=== PATIENT | male | born 1940 | race Caucasian/White ===

== ENCOUNTER 2016-11-10 15:32 | Inpatient (IN) | payer OTHER ==
[~2016-11-10] VITALS: Ht 172.7 cm; Wt 105.3 kg
--- NOTE | ~2016-11-10 | H ---
[facility] [place] [address] HISTORY AND PHYSICAL Name: KANG SHUKLA Room #: 248-P [facility] IN ..#: [id number] Admission: 11/10/16 Attend Phys: Royal Castro Discharge: Date of : 42 Report #: [id number] THIS REPORT FOR: //name// CC: Ed Deal DATE OF SERVICE: 11/10/2016 CHIEF COMPLAINT: Shortness of breath. HISTORY OF PRESENT ILLNESS: The patient is a 76-year-old gentleman who presented to the Emergency Room with 4 days of shortness of breath. He said over the last week, he has gained 6 or 7 pounds at home and has developed a productive cough. He reported some symptoms of "congestion" and cough spasms, but really nonproductive cough. He felt his breathing was worse when he tried to lie in bed, so he has been upright in a chair. He does have a history of sleep apnea and wears a CPAP at night, which he has been using. He thought maybe he had some lower extremity edema as well. He denied any symptoms of fever. PAST MEDICAL HISTORY: Hypertension, obstructive sleep apnea, diabetes type 2. PAST SURGICAL HISTORY: Noncontributory. FAMILY HISTORY: Unknown. SOCIAL HISTORY: He is living at home. No chronic alcohol or tobacco use. ALLERGIES: None. MEDICATIONS: Metformin 850 mg b.i.d., VESIcare 5 mg, nabumetone 500 mg, Amaryl 2 mg, niacin 500 mg, Avapro 150 mg, pravastatin 20 mg, Flomax 0.4 mg, testosterone every other week injection. REVIEW OF SYSTEMS: He complains of shortness of breath, diaphoresis, otherwise no headache, chest pain, fever or chills, nausea, vomiting, diarrhea, constipation, dysuria, syncope. PHYSICAL EXAMINATION: VITAL SIGNS: Temperature 36.6, pulse 100, respirations 25, blood pressure 135/100, ranging 135/92. O2 sat 94% to 96% on 2 liters nasal cannula. GENERAL: He is awake and alert, in no distress. He is diaphoretic. LUNGS: Diminished at the bases, some wheezing north. HEART: Tachycardic, regular, no murmur. ABDOMEN: Obese, soft, normoactive bowel sounds. EXTREMITIES: 1+ edema. NEUROLOGIC: Motor strength 4/5 throughout. He is alert and oriented. [facility] [address] [place] [address] HISTORY AND PHYSICAL Name: KANG SHUKLA Rosendo Room #: 248-P [facility] IN [facility]#: [id number] Admission: 11/10/16 Attend Phys: Royal Castro Discharge: Date of : 42 Report #: [id number] LABORATORY DATA: White count is 10. Chest x-ray reveals atelectasis in the bases. His BNP was 11,000. ASSESSMENT: 1. Acute congestive heart failure. 2. Obstructive sleep apnea. 3. Diabetes type 2. 4. Morbid obesity. PLAN: His presentation and findings are more supportive of congestive heart failure diagnosis rather than infectious pneumonia process given no real sputum production, fever, and only marginal white count which has normalized overnight. Elevated BNP with his reports of weight gain would support more of a heart failure picture. IV fluids to stop with Lasix to be given. I have spoken with Dr. Piña echocardiogram has been ordered. Lovenox for DVT prophylaxis. I some of his home medications for now to give more data. <ELECTRONICALLY SIGNED> By: Antonio Heaton MD 11/11/16 1359 1033 1230 Antonio Heaton MD /nt
--- NOTE | ~2016-11-10 | EKG ---
[place] [address] [facility] [place] [address] ELECTROCARDIOGRAM REPORT Name: ANTHONY SHUKLAHIWOT Robbins Room #: 242-P ADM IN M.R.#: [id number] Admission: 11/10/16 Attend Phys: Royal Castro Discharge: Date of : 42 Report #: [id number] THIS REPORT FOR: //name// [facility] Test Date: 2016-11-12 Test Time: 16:58:53 Pat Name: KANG SHUKLA Department: Room: 242 P Gender: M International Logistics Manager: Royal LUNDBERG : 1940 Requested By: Antonio Heaton Order Number: [id number] MD: Perez France Measurements Intervals [place] Rate: 112 P: [place]: QRS: 237 QRSD: 108 T: 3 QT: 412 QTc: 563 Interpretive Statements Atrial fibrillation Paired ventricular premature complexes Poor R wave progression Nonspecific T wave abnormality Prolonged QT interval Compared to ECG 11/10/2016 16:26:50 atrial fibrillation is replaced sinus rhythm Electronically Signed On 11-13-2016 8:24:49 CDT by Perez France [email or web address] <ELECTRONICALLY SIGNED> By: Perez France MD, [facility] 11/13/16 0824 1658 1658 Perez France MD, [facility] /EPI
--- NOTE | ~2016-11-10 | D ---
[facility] [place] [address] DISCHARGE SUMMARY Name: KANG SHUKLA Room #: 207-P [facility] IN .R.#: [id number] Admission: 11/10/16 Attend Phys: oRyal Castro Discharge: 11/19/16 Date of : 41 Report #: [id number] THIS REPORT FOR: //name// CC: Ed Deal DATE OF SERVICE: 11/19/2016 FINAL DIAGNOSES: 1. Acute systolic congestive heart failure. 2. Acute hypoxic respiratory failure. 3. Obstructive sleep apnea, on CPAP. 4. Coronary artery disease. 5. Metabolic encephalopathy. 6. Critical illness myopathy. HOSPITAL COURSE: The patient was admitted with shortness of breath. Working diagnosis through the emergency room was pneumonia; however, he had no elevated white count or sputum and exam along with studies confirmed the diagnosis of pneumonia given pulmonary edema, effusions, elevated BNP and ultimately on echocardiogram, ejection fraction of 20%. He developed hypoxic respiratory failure and required BiPAP treatment in ICU initially. Pulmonary and cardiology followed him. Diuretics were administered and gradually his condition was slowly improving. He transferred out of ICU and underwent a left and right heart cath, please see the separately dictated reports. This revealed some scattered coronary artery disease, but nothing amenable to stent, ejection fraction was confirmed at 20% with a high wedge pressure and slightly elevated pulmonary artery pressure. Diuretic doses were adjusted. Gradually, his mental status cleared, returned to baseline. He was back on his home CPAP equipment. He was a tolerating a diet and was transferred out to CCU. He was participating with physical therapy. DISPOSITION: He is being transferred to [address] [place] [address]. All the services will continue to follow his stay there, and a heart healthy diet and medications have been signed for transfer. <ELECTRONICALLY SIGNED> By: Antonio Heaton MD 11/21/16 0821 1142 1203 Antonio Heaton MD /nt
--- NOTE | ~2016-11-10 | HC ---
[facility] [place] [address] CONSULTATION Name: KANG SHUKLA Rosendo Room #: 242-P [facility] IN ..#: [id number] Admission: 11/10/16 Attend Phys: Royal Castro Discharge: Date of : 41 Report #: [id number] THIS REPORT FOR: //name// CC: Ed Piña MD HISTORY OF PRESENT ILLNESS: The patient is a 76-year-old male who I was asked to see in neurological consultation for altered mental status. The patient was initially admitted to the hospital 2 days ago with shortness of breath. At that time, the patient was found to have a CO2 on his blood gas was 52. The patient has sleep apnea and is apparently compliant with CPAP. During his hospital admission, he was also found to have heart failure and has an ejection fraction of 20%. Apparently, the patient has not felt well for the past 6 months or so and has become progressively short of breath. Earlier today, the patient's breathing became quite labored and he began using his abdominal muscles. The patient was put on BiPAP and his breathing became more comfortable. However, the patient became lethargic and had to depend continuously on BiPAP and he was transferred to the intensive care unit. At that time, the results of the echo were noted. He was able to open his eyes, but not able to do much else, it was at bedtime. His CO2 on his blood gas was 70. The patient has now had a repeat blood gas and his CO2 is 65.9. PAST MEDICAL HISTORY: Hypertension, obstructive sleep apnea, and diabetes. PAST SURGICAL HISTORY: Noncontributory. MEDICATIONS: In the hospital include Coreg 6.25 mg b.i.d., Rocephin 1 g daily, Colace 100 mg at bedtime, Lovenox 40 mg subcutaneous daily, Flomax 0.4 mg daily, furosemide 40 mg IV b.i.d., losartan 100 mg daily. ALLERGIES: None. PHYSICAL EXAMINATION: VITAL SIGNS: Temperature 36.8 axillary, pulse rate 89, respiratory rate 17, blood pressure 100/70, bedside pulse oximetry 98% on BiPAP. LABORATORY DATA: White blood cell count 12.9, hemoglobin 14.3, hematocrit 44.6, MCV 87.9, platelet count 378,000. Most recent blood gas pH 7.355, pCO2 of 65.9, pCO2 36, O2 saturation 96.2. Chemistry: Sodium 136, potassium 5.1, chloride 99, carbon dioxide 32, BUN 32, creatinine 1.1, GFR 65, glucose 103, calcium 9.8, total bilirubin 1, AST 19, ALT 19, alkaline phosphatase 95, albumin 3.3. TSH is 3.21. IMAGING: CT scan of the head demonstrates atrophic changes. NEUROLOGIC: Cranial nerves 2-12 are grossly intact. Motor exam demonstrates [address] [address] CONSULTATION Name: KANG SHUKLA Rosendo Room #: 242-P [facility] IN ..#: [id number] Admission: 11/10/16 Attend Phys: Royal Castro Discharge: Date of : 41 Report #: [id number] symmetrical strength in all 4 extremities with tone and bulk normal. Reflexes are trace throughout. Plantar responses are flexor bilaterally. Coordination and gait were not tested. The patient was able to follow simple commands. IMPRESSION: Although the patient may not be completely awake. He was able to follow simple commands. According to the nurse, the patient's mentation has improved as his CO2 was improved, and I would suspect that he is lethargic from the increase in CO2. As this includes his mentation should improve, although it may lag behind his lab work. If the patient does not return to his baseline, please let me know and I will be more than happy to reevaluate him. I thank you for your kind referral of the patient. <ELECTRONICALLY SIGNED> By: Yola Herrera DO 11/15/16 1457 1517 0114 Yola Herrera DO /nt
--- NOTE | ~2016-11-10 | HC ---
[facility] [place] [address] CONSULTATION Name: KANG SHUKLA Room #: 242-P [facility] IN M.R.#: [id number] Admission: 11/10/16 Attend Phys: Royal Castro Discharge: Date of : 41 Report #: [id number] THIS REPORT FOR: //name// CC: Ed Deal PULMONARY CONSULTATION PRIMARY PHYSICIAN: Mateusz Deal M.D. REASON FOR REFERRAL: Dyspnea. HISTORY OF PRESENT ILLNESS: The patient is a 76-year-old white male who presents to the emergency room with progressive dyspnea. A pulmonary consultation was requested. The patient states that he has been short of breath for the last 6 months and it has been progressively worsening. For the last few days, he has noticed generalized weakness. He denies any paresthesias or unilateral numbness or weaknesses. He denies any recent headache. He has smoked for a few years, but quit in 1960s. He has never been diagnosed with chronic lung disease. He has sleep apnea and he has been said to be compliant with the use of CPAP. He also states that he lost 20-30 pounds intentionally over the last few months. With worsening dyspnea, he presents to the emergency room. CT chest and chest x-ray performed were in the emergency room. These showed mild ground-glass opacity in both lung north. Small lung volumes were noted. No evidence of pulmonary embolus. Again, the patient denies any recent febrile illness, chest pain or productive cough. He is also followed by Dr. Siu. PAST MEDICAL HISTORY: Notable for sleep apnea as mentioned above; morbid obesity, now with intentional weight loss; diabetes mellitus type 2; hypertension; seasonal allergies and history of infiltrates dating back to 2001. ALLERGIES: None noted. MEDICATIONS: His home medications include Glucophage, VESIcare, nabumetone, Amaryl, niacin, Avapro, Pravachol, Flomax and Testosterone. FAMILY HISTORY: Noncontributory. SOCIAL HISTORY: As mentioned above, he quit smoking in 1960s. Denies any [facility] [address] [place] [place] [address] CONSULTATION Name: KANG SHUKLA Room #: [address] [place] [place] [address] IN ..#: [id number] Admission: 11/10/16 Attend Phys: Royal Castro Discharge: Date of : 41 Report #: [id number] alcohol use. He is retired from office work. REVIEW OF SYSTEMS: As mentioned above, otherwise 10-point system review negative. PHYSICAL EXAMINATION: GENERAL: On examination, he is awake, alert, appears moderately dyspneic and appears weak. VITAL SIGNS: Temperature is 98 degrees Fahrenheit, pulse is 100, respiratory rate is 25, blood pressure is 135/92 mmHg and saturation 96% on supplemental O2. HEENT: Normocephalic, atraumatic. NECK: Supple, without any lymphadenopathy or thyromegaly. CHEST: Breath sounds are decreased bilaterally, with few scattered crackles in the bases. No wheezes. CARDIOVASCULAR: Heart sounds are distant. No obvious murmurs or gallop. Regular rhythm and rate. ABDOMEN: Obese, soft, nontender. No organomegaly or masses felt. GENITOURINARY: Deferred. RECTAL: Deferred. EXTREMITIES: Notable for 1+ pretibial edema. No cyanosis or clubbing. LABORATORY DATA: Chest x-ray and CT chest, as mentioned above, showing mild bilateral ground-glass opacities. D-dimer was 1.332. CT head showed atrophic changes. Troponin was 0.06. EKG shows old anteroseptal infarct, otherwise no acute changes. Sodium 134, potassium 4.7, chloride 97, CO2 is 31, BUN is 25 and creatinine is 1.0. Liver function test is grossly unremarkable. WBC 11,900 without significant bandemia, hemoglobin is 14.0 and platelets are normal. Albumin 3.3. Arterial blood gas revealed pH of 7.34, pCO2 of 52 on 3 liters of O2 and pO2 is 100. IMPRESSION: 1. Progressive dyspnea in this 76-year-old white male. His chest CT shows mild ground-glass opacity. He has mild leukocytosis without bandemia. Etiology is probably related to rodhh-ke-jyossac diastolic or systolic heart failure. Pneumonia is felt to be less likely given the absence of febrile illness or productive cough. 2. Probable chronic hypercapnic respiratory insufficiency. Baseline arterial blood gas once the patient is improved will be helpful. 3. Obstructive sleep apnea, on CPAP. The patient has lost about 20-30 pounds. Once he is stable, I would recommend a re-titration CPAP study. 4. Hypertension. 5. Diabetes mellitus type 2. 6. Obesity, as mentioned above, with recent weight loss. RECOMMENDATIONS: I would start broad spectrum antibiotics to cover for presumed community-acquired pneumonia. I would also obtain echocardiogram. Resume CPAP [facility] [address] [place] [address] CONSULTATION Name: KANG SHUKLA Room #: 242-P [facility] IN M.R.#: [id number] Admission: 11/10/16 Attend Phys: Royal Castro Discharge: Date of : 41 Report #: [id number] during sleep. DVT and GI prophylaxis recommended. Thank you for this consultation. <ELECTRONICALLY SIGNED> By: Kenneth Piña MD 11/12/16 1732 1155 1513 Kenneth Piña MD /nt
--- NOTE | ~2016-11-10 | HC ---
[facility] [place] [address] CONSULTATION Name: KANG SHUKLA Room #: 207-P [facility] IN ..#: [id number] Admission: 11/10/16 Attend Phys: Royal Castro Discharge: Date of : 41 Report #: [id number] THIS REPORT FOR: //name// CC: Ed Deal HISTORY OF PRESENT ILLNESS: The patient is a 76-year-old white male who was admitted with shortness of breath, noted to have acute congestive heart failure. He underwent cardiac catheterization with plans to treat medically. He is noted to have acute hypercapnic respiratory failure and newly diagnosed cardiomyopathy. He also has encephalopathy with significant cognitive changes noted. He is being seen now in rehabilitation medicine consultation. PAST MEDICAL HISTORY: Includes hypertension, obstructive sleep apnea, diabetes mellitus type 2, obesity, obstructive sleep apnea with CPAP at night, nasal prong O2 premorbidly. FAMILY HISTORY: Noncontributory. PAST SURGICAL HISTORY: See above. MEDICATIONS: Please see the full medication listing. ALLERGIES: None. SOCIAL HISTORY: He lives at home with his , 1-2 steps in, did not utilize gait aids. is retired, but notes he will have to be reasonably functional for her to care for him. REVIEW OF SYSTEMS: No current complaints of chest pain, shortness of breath or abdominal discomfort. He does get quite short of breath with limited activity and complains of generalized weakness. No focal extremity pain complaints. PHYSICAL EXAMINATION: GENERAL: He is a 76-year-old white male, significantly obese, in no obvious distress. VITAL SIGNS: His last recorded temperature is 97.5, pulse 76, respirations 18, and blood pressure 121/71. NEUROLOGIC: The patient is sleepy, but easily arouses. There is a definite latency to his responses. He has decreased insight and tends to defer to his . Facies appeared to be symmetric. He is currently on nasal prong O2, 4 liters. EXTREMITIES: Functional range of motion of both upper extremities with strength a grade 3+ to 4-/5. Lower extremities, no focal calf swelling, functional range of motion, strength is a grade 3+ to 4-/5. He is mod assist with sit to stand. Gait was 13 feet min assist with a front-wheeled walker. He is min assist to put on his socks and max assist for pericare. [address] [address] CONSULTATION Name: VAZQUEZKANG Rosendo Room #: 207-P [facility] IN ..#: [id number] Admission: 11/10/16 Attend Phys: Royal Castro Discharge: Date of : 42 Report #: [id number] ASSESSMENT: A 76-year-old white male with the following problem list: 1. Encephalopathy, likely multifactorial. He has had a significant cognitive change overall compared with his premorbid status per discussion with the . 2. Medical complexity with generalized debilitation. 3. Acute hypercapnic respiratory failure. 4. Newly diagnosed cardiomyopathy with diuresis as per cardiology. 5. Atherosclerotic coronary artery disease. 6. Hypertension. 7. Diabetes mellitus. 8. Obesity. PLAN: He has had a significant functional and cognitive decline from his premorbid status. He is on nasal prong O2, 4 liters. He is being closely managed by cardiology and by pulmonary medicine as well as internal medicine. He would be a candidate for an acute in-hospital inpatient rehabilitation stay where the multiple systems development consultant physicians including cardiology and pulmonary could continue to follow with him while he is undergoing his rehabilitation. This level of care would not be available with any nursing facility. Insurance will be checked regarding an acute in-hospital inpatient rehabilitation stay. Discussion was held with the patient's . By: 1141 1232 Antonio Tellez MD /nt
--- NOTE | ~2016-11-10 | EKG ---
[place] [address] [facility] [place] [address] ELECTROCARDIOGRAM REPORT Name: KANG SHUKLA Room #: 248-P ADM IN M.R.#: [id number] Admission: 11/10/16 Attend Phys: Royal Castro Discharge: Date of : 42 Report #: [id number] THIS REPORT FOR: //name// [facility] ED Test Date: 2016-11-10 Test Time: 16:26:50 Pat Name: KANG SHUKLA Department: Room: 248 Gender: M Senior Director Marketing: DAKOTA : 1940 Requested By: Evan Miranda Order Number: [id number] MD: Perez France Measurements Intervals [place] Rate: 104 P: 6 MS: 213 QRS: 148 QRSD: 111 T: -16 QT: 344 QTc: 453 Interpretive Statements Sinus tachycardia Occasional premature ventricular complexes Borderline prolonged MS interval Left posterior fascicular block Anteroseptal infarct, old Nonspecific ST and T-wave abnormality Compared to ECG 03/02/2002 09:36:34 Ventricular premature complex(es) now present Nonspecific change in the ST and T segments Electronically Signed On 11-11-2016 8:48:44 CDT by Perez France [email or web address] <ELECTRONICALLY SIGNED> By: Perez France MD, [facility] 11/11/16 0848 1626 1626 Perez France MD, [facility] /EPI
--- NOTE | ~2016-11-10 | EKG ---
[place] [address] [employer] [facility] [place] [address] ELECTROCARDIOGRAM REPORT Name: VAZQUEZKANG A Room #: 242-P ADM IN M.R.#: [id number] Admission: 11/10/16 Attend Phys: Royal Castro Discharge: Date of : 42 Report #: [id number] THIS REPORT FOR: //name// [facility] Test Date: 2016-11-12 Test Time: 09:44:38 Pat Name: KANG SHUKLA Department: Room: [facility] Gender: M Sales Representative Girls' Apparel: DIANNA : 1940 Requested By: Kenneth Piña Order Number: [id number] MD: Perez France Measurements Intervals [place] Rate: 95 P: 8 IL: 206 QRS: 151 QRSD: 108 T: -4 QT: 439 QTc: 552 Interpretive Statements Sinus rhythm occasional premature ventricular complexes Right axis deviation Possible anteroseptal infarct, old Borderline T abnormalities Prolonged QT interval Compared to ECG 11/10/2016 16:26:50 no significant change was found Electronically Signed On 11-13-2016 8:16:18 CDT by Perez France [email or web address] <ELECTRONICALLY SIGNED> By: Perez France MD, [facility] 11/13/16 0816 0944 0944 Perez France MD, [facility] /EPI
--- NOTE | ~2016-11-10 | EKG ---
[address] [place] [address] ELECTROCARDIOGRAM REPORT Name: VAZQUEZKANG A Room #: 242-P ADM IN M.R.#: [id number] Admission: 11/10/16 Attend Phys: Royal Castro Discharge: Date of : 42 Report #: [id number] THIS REPORT FOR: //name// [facility] Test Date: 2016-11-14 Test Time: 09:51:44 Pat Name: KANG SHUKLA Department: Room: 242 P Gender: M Geological Technician: carmina : 1940 Requested By: Angelina Ortiz Order Number: [id number] MD: Perez France Measurements Intervals [place] Rate: 129 P: [place]: QRS: 148 QRSD: 116 T: -10 QT: 352 QTc: 516 Interpretive Statements Atrial flutter with variable AV block Nonspecific intraventricular conduction delay Poor R wave progression Nonspecific ST and T wave abnormality Compared to ECG 11/12/2016 16:58:53 no significant change was found Electronically Signed On 11-16-2016 15:37:14 CDT by Perez France [email or web address] <ELECTRONICALLY SIGNED> By: Perez France MD, [facility] 11/16/16 1537 0951 0951 Perez France MD, [facility] /EPI
--- NOTE | ~2016-11-10 | 2DMMODE ---
[facility] [address] [place] [place] [address] 2 D/M-MODE ECHOCARDIOGRAM Name: KANG SHUKLA Room #: 248-P [facility] IN [facility]#: [id number] Admission: 11/10/16 Attend Phys: Ed Campoverde Discharge: Date of : 42 Date of Service: 11/11/16 1533 Report #: [id number] THIS REPORT FOR: //name// APPROVED REPORT Study performed: 11/11/2016 14:21:20 EXAM: Comprehensive 2D, Doppler, and color-flow Echocardiogram Patient Location: Bedside Room #: 248 Status: routine Other Information Study Quality: Adequate/Patient in ICU on CPAP Indications Diastolic dysfunction. 2D Dimensions RVDd: 42.09 mm LVEF(%): 22.39 (>50%) IVSd: 11.45 (7-11mm) LVOT Diam: 22.96 (18-24mm) LVDd: 62.22 mm PWd: 10.63 (7-11mm) LVDs: 55.70 (25-40mm) Aortic Root: 36.57 mm Tyson's LVEF: 22.39 % Volumes Left Atrial Volume (Systole) Single Plane 4CH: 69.09 mL Single Plane 2CH: 74.48 mL LA ESV Index: 38.00 mL/m2 Aortic Valve AoV Peak Yariel.: 1.38 m/s AO Peak Gr.: 7.58 mmHg LVOT Max P.09 mmHg LVOT Max V: 0.72 m/s TAYLA Vmax: 2.17 cm2 Mitral Valve E/A Ratio: 1.2 MV Decel. Time: 98.08 ms MV E Max Yariel.: 1.14 m/s MV A Yariel.: 0.94 m/s MV PHT: 28.44 ms IVRT: 57.67 ms [facility] [place] [address] 2 D/M-MODE ECHOCARDIOGRAM Name: KANG SHUKLA Room #: 248-P [facility] IN ..#: [id number] Admission: 11/10/16 Attend Phys: Ed Campoverde Discharge: Date of : 42 Date of Service: 11/11/16 1533 Report #: [id number] Pulmonary Valve PV Peak Yariel.: 1.16 m/s PV Peak Gr.: 5.42 mmHg Tricuspid Valve TR Peak Yariel.: 3.05 m/s RAP Estimate: 15.00 mmHg TR Peak Gr.: 37.30 mmHg PA Pressure: 52.00 mmHg Left Ventricle Left ventricle is dilated. There is normal left ventricular wall thickness. Left ventricular systolic function is severely decreased. LVEF is 20%. This study is difficult to evaluate for LV diastolic function due to arrhythmia. Right Ventricle Right ventricle is mildly dilated. Right ventricle is severely hypokinetic. Atria Left atrium is dilated. Right atrium is borderline dilated. Aortic Valve Aortic valve is calcified. Trace aortic regurgitation. There is no aortic valvular stenosis. Mitral Valve Mild mitral annular calcification. Moderate mitral regurgitation. Tricuspid Valve The tricuspid valve is normal in structure. There is mild tricuspid regurgitation. The right atrial pressure is estimated at 15 mmHg. There is moderate pulmonary hypertension with an estimated PAP of 52mmHg. Pulmonic Valve The pulmonary valve is normal in structure. Mild pulmonic regurgitation. Great Vessels The aortic root is normal in size. Ascending aorta is not well visualized. IVC is dilated and collapses <50% with inspiration. Pericardium [facility] [address] [place] [address] 2 D/M-MODE ECHOCARDIOGRAM Name: KANG SHUKLA Rosendo Room #: 248-P [facility] IN [facility].#: [id number] Admission: 11/10/16 Attend Phys: Ed Campoverde Discharge: Date of : 42 Date of Service: 11/11/16 153 Report #: [id number] No pericardial effusion. <Conclusion> LVEF is 20%. Left ventricular systolic function is severely decreased. Left ventricle is dilated. Left atrium is dilated. Aortic valve is calcified, no aortic valvular stenosis. Trace insufficiency Mild mitral annular calcification. Moderate mitral regurgitation. Pulmonary artery pressure of 40-45mmHg. No pericardial effusion. <ELECTRONICALLY SIGNED> By: Perez France MD, [facility] 06/11/22 1532 32 32 Perez France MD, [facility] /INF
--- NOTE | ~2016-11-10 | P ---
[facility] [place] [address] PROCEDURE REPORT Name: KANG SHUKLA Room #: 207-P ADM IN M.R.#: [id number] Admission: 11/10/16 Attend Phys: Royal Castro Discharge: Date of : 42 Report #: [id number] THIS REPORT FOR: //name// CC: Ed Deal PROCEDURES: Right and left heart catheterization. DESCRIPTION OF PROCEDURE: The patient brought to the catheterization lab in recurrent heart failure and hypoxemia. A 7-Tajik sheath in the right femoral vein, 6-Tajik in the right femoral artery. Straight pigtail catheter performed a single LINDA ventriculogram. Inferior base was akinetic. There was moderately severe global hypokinesis, EF 20% to 25% range. AP aortogram, renal arteries were patent with mild disease. No aneurysm in the aorta. FL4 for the left coronary system. Left main was preserved. The LAD had an eccentric lesion of 80% to 90% and then a diffusely diseased vessel distally. The circ OM also had a high-grade proximal lesion of 80% and the first large OM branch was occluded. The ramus branch was intact, had a 90% lesion. This was long and it could be bypassed. The large first OM is occluded and this may be a codominant system. I should note the distal half of the LAD has high-grade disease. There is diffusely diseased distal third. The JR4 for the right, subtotal proximal lesion in a significantly ectatic vessel and a proximal PDA lesion of 90%, but otherwise, the distal two-thirds of the PDA are preserved and providing some filling to an OM, it appears. The patient tolerated well. Mynx closure was utilized and pressure for the artery. The Ingram-Etelvina was performed initially with a 7-Tajik without complications. HEMODYNAMICS: RA mean of 21. RV 60/18. PA 61/30. Pulmonary capillary wedge mean was 27. Aortic 102/20. LV 104/60. Cardiac output 4.35. Cardiac index . IMPRESSION: 1. Left main free of disease. 2. Left anterior descending proximally calcified with 80% proximal and mid vessel lesion and a more diffusely diseased distal third. 3. Ramus branch 90% large, could be bypassed. 4. Large first obtuse marginal branch is totally occluded and collateralized from left and right. 5. There is a distal posterior lateral branch which may be collateral filling from the left. From the circumflex, it is patent in a retrograde fashion in the dominant right. High-grade proximal lesion, severe calcification, ectatic vessel. Posterior descending artery also has 80% proximal lesion. RECOMMENDATIONS: Continue aggressive risk factor modification. Lasix drip has been initiated to the CCU for aggressive diuresis. Currently, I do not see a great option revascularization here. Certainly, not percutaneous. Optimize medical therapy and one could consider complex and high-risk bypass surgery, but [facility] [address] [place] [address] PROCEDURE REPORT Name: KANG SHUKLA Room #: 207-P [facility] IN M.R.#: [id number] Admission: 11/10/16 Attend Phys: Royal Castro Discharge: Date of : 41 Report #: [id number] would try to treat this medically. Needs aggressive diuresis to the CCU with the Lasix drip and electrolyte protocol. By: [id number] Sourav Head MD, FACC /nt
[~2016-11-10 15:32] MED LIST: AMARYL2 MG PO; AVAPRO 150 MG150 MG PO; CITRATE OF MAG296 ML PO; COLACE100 MG PO; FLOMAX0.4 MG PO; GLUCOPHAGE850 MG PO; NABUMETONE 500500 M1 PO; NIACIN500 MG PO; PRAVACHOL20 MG PO; TESTONE CI200 MG/1 M; VESICARE10 M1 PO
[2016-11-10 16:20] VITALS: BP 129/82
[2016-11-10 16:46] LABS: ABG COMMENT NO COMPLICATIONS.; ABG SAMPLE TYPE ARTERIAL; BE(vivo) 1.4 mmol/L (-2 to +3); HCO3 28.1 mmol/L (22.0-26.0); LACTATE 1.48 mmol/L (0.5-2.0); O2(CT) 19.5 mL/dL (15.0-23.0); O2Hb 95.9 % (92.0-98.0); PCO2 52.1 mmHg (35.0-45.0); PO2 100.5 mmHg (80.0-100.0); STICK SITE R.BRACHIAL; pH 7.349 (7.360-7.450); sO2 97.2 % (92.0-98.0); tCO2 29.7 mmol/L (24.0-30.0)
[2016-11-10 17:48] LABS: HEMATOCRIT 42.6 % (42.0-52.0); MCH 28.5 pg (26.0-34.0); MCHC 32.8 g/dL (28.0-37.0); MCV 86.8 fL (80.0-100.0); PLATELET COUNT 350 thou/uL (150-400); RBC 4.91 mil/uL (4.50-6.00); RDW 14.6 % (10.5-14.5); WBC 11.9 thou/uL (4.0-11.0)
[2016-11-10 17:49] LABS: MANUAL DIFF YES
[2016-11-10 17:56] LABS: CALCIUM 9.7 mg/dL (8.5-10.1); POTASSIUM 4.7 mmol/L (3.5-5.1)
[2016-11-10 18:10] LABS: ABSOLUTE NEUTROPHILS 10.2 thou/uL (1.4-8.2); ALBUMIN 3.3 g/dL (3.4-5.0); ANISOCYTOSIS 1+; TOTAL CELL COUNT 100; TOTAL PROTEIN 8.3 g/dL (6.4-8.2); TROPONIN-I 0.07 ng/mL (<0.04-0.07)
[2016-11-10 18:11] LABS: POLYCHROMASIA OCCASIONAL
[2016-11-10 22:00] VITALS: BP 118/94
[2016-11-11] VITALS (24 sets, daily range): BP systolic 111–152; BP diastolic 75–105
[2016-11-11 04:50] LABS: HEMATOCRIT 41.7 % (42.0-52.0); HEMOGLOBIN 13.6 gm/dL (14.0-18.0); MCH 28.5 pg (26.0-34.0); MCHC 32.5 g/dL (28.0-37.0); MCV 87.7 fL (80.0-100.0); RBC 4.76 mil/uL (4.50-6.00); RDW 14.3 % (10.5-14.5); WBC 10.7 thou/uL (4.0-11.0)
[2016-11-11 04:57] LABS: CALCIUM 9.5 mg/dL (8.5-10.1); CREATININE 0.8 mg/dL (0.7-1.3); POTASSIUM 4.6 mmol/L (3.5-5.1)
[2016-11-11 21:10] LABS: CALCIUM 9.3 mg/dL (8.5-10.1); CREATININE 1.2 mg/dL (0.7-1.3)
[2016-11-12] VITALS (55 sets, daily range): BP systolic 90–146; BP diastolic 44–82
[2016-11-12 03:12] LABS: HEMATOCRIT 44.6 % (42.0-52.0); HEMOGLOBIN 14.3 gm/dL (14.0-18.0); MCH 28.1 pg (26.0-34.0); MCHC 32.1 g/dL (28.0-37.0); MCV 87.8 fL (80.0-100.0); RBC 5.08 mil/uL (4.50-6.00); RDW 14.6 % (10.5-14.5); WBC 12.9 thou/uL (4.0-11.0)
[2016-11-12 03:26] LABS: CALCIUM 9.8 mg/dL (8.5-10.1); CREATININE 1.1 mg/dL (0.7-1.3); POTASSIUM 5.1 mmol/L (3.5-5.1)
[2016-11-12 09:52] LABS: ABG SAMPLE TYPE ARTERIAL; HCO3 33.3 mmol/L (22.0-26.0); O2(CT) 19.4 mL/dL (15.0-23.0); O2Hb 93.7 % (92.0-98.0); PCO2 72.7 mmHg (35.0-45.0); PO2 85.1 mmHg (80.0-100.0); STICK SITE L.RADIAL; pH 7.279 (7.360-7.450); sO2 94.8 % (92.0-98.0); tCO2 35.5 mmol/L (24.0-30.0)
[2016-11-12 09:53] LABS: Pressure Support 15 cm H20; VDS HOME BIPAP 15/9 6LPM cc
[2016-11-12 11:56] LABS: ABG SAMPLE TYPE ARTERIAL
[2016-11-12 11:59] LABS: BE(vivo) 7.9 mmol/L (-2 to +3); LACTATE 1.26 mmol/L (0.5-2.0); O2Hb 96.2 % (92.0-98.0); PCO2 65.9 mmHg (35.0-45.0); STICK SITE R.RADIAL; pH 7.355 (7.360-7.450)
[2016-11-12 12:00] LABS: ABG COMMENT BIPAP 19/9 R 17
[2016-11-13] VITALS (44 sets, daily range): BP systolic 90–118; BP diastolic 62–83
[2016-11-13 04:51] LABS: ALBUMIN 2.6 g/dL (3.4-5.0); CREATININE 1.2 mg/dL (0.7-1.3); PHOSPHORUS 3.9 mg/dL (2.5-4.9); POTASSIUM 4.1 mmol/L (3.5-5.1)
[2016-11-13 11:36] LABS: ABG SAMPLE TYPE ARTERIAL; BE(vivo) 7.6 mmol/L (-2 to +3); HCO3 34.9 mmol/L (22.0-26.0); LACTATE 1.71 mmol/L (0.5-2.0); O2(CT) 19.2 mL/dL (15.0-23.0); O2Hb 96.2 % (92.0-98.0); PCO2 60.3 mmHg (35.0-45.0); PO2 102.3 mmHg (80.0-100.0); sO2 97.4 % (92.0-98.0); tCO2 36.7 mmol/L (24.0-30.0)
[2016-11-13 11:37] LABS: STICK SITE R.RADIAL
[2016-11-14] VITALS (26 sets, daily range): BP systolic 87–130; BP diastolic 58–82
[2016-11-14 05:06] LABS: HEMATOCRIT 42.9 % (42.0-52.0); HEMOGLOBIN 13.8 gm/dL (14.0-18.0); MCH 28.5 pg (26.0-34.0); MCHC 32.2 g/dL (28.0-37.0); MCV 88.4 fL (80.0-100.0); RBC 4.85 mil/uL (4.50-6.00); RDW 14.5 % (10.5-14.5); WBC 11.2 thou/uL (4.0-11.0)
[2016-11-14 05:22] LABS: CALCIUM 8.9 mg/dL (8.5-10.1); CREATININE 1.1 mg/dL (0.7-1.3); POTASSIUM 4.3 mmol/L (3.5-5.1)
[2016-11-14 10:05] LABS: ABG SAMPLE TYPE ARTERIAL; BE(vivo) 7.5 mmol/L (-2 to +3); HCO3 34.9 mmol/L (22.0-26.0); LACTATE 1.66 mmol/L (0.5-2.0); O2(CT) 20.4 mL/dL (15.0-23.0); O2Hb 96.2 % (92.0-98.0); PCO2 60.2 mmHg (35.0-45.0); STICK SITE L.RADIAL; pH 7.381 (7.360-7.450); sO2 97.4 % (92.0-98.0); tCO2 36.7 mmol/L (24.0-30.0)
[2016-11-15] VITALS (25 sets, daily range): BP systolic 80–109; BP diastolic 38–81
[2016-11-16] VITALS (27 sets, daily range): BP systolic 72–111; BP diastolic 47–78
[2016-11-16 05:51] LABS: ABG SAMPLE TYPE ARTERIAL; BE(vivo) 8.9 mmol/L (-2 to +3); HCO3 35.9 mmol/L (22.0-26.0); LACTATE 1.55 mmol/L (0.5-2.0); O2(CT) 21.9 mL/dL (15.0-23.0); O2Hb 89.3 % (92.0-98.0); PCO2 56.6 mmHg (35.0-45.0); PO2 59.6 mmHg (80.0-100.0); STICK SITE L.BRACHIAL; sO2 90.8 % (92.0-98.0); tCO2 37.6 mmol/L (24.0-30.0)
[2016-11-16 11:58] LABS: CALCIUM 8.7 mg/dL (8.5-10.1); CREATININE 1.2 mg/dL (0.7-1.3); POTASSIUM 4.1 mmol/L (3.5-5.1)
[2016-11-17] VITALS (11 sets, daily range): BP systolic 87–106; BP diastolic 45–71
[2016-11-17 05:45] LABS: CALCIUM 9.1 mg/dL (8.5-10.1); CREATININE 1.1 mg/dL (0.7-1.3); POTASSIUM 4.6 mmol/L (3.5-5.1)
[2016-11-17 05:46] LABS: ABG SAMPLE TYPE ARTERIAL; HCO3 36.5 mmol/L (22.0-26.0); LACTATE 1.16 mmol/L (0.5-2.0); O2(CT) 19.6 mL/dL (15.0-23.0); O2Hb 95.1 % (92.0-98.0); PCO2 62.1 mmHg (35.0-45.0); PO2 93.5 mmHg (80.0-100.0); pH 7.387 (7.360-7.450); sO2 96.9 % (92.0-98.0); tCO2 38.4 mmol/L (24.0-30.0)
[2016-11-17 05:47] LABS: STICK SITE R.RADIAL
[2016-11-18] VITALS (9 sets, daily range): BP systolic 80–131; BP diastolic 42–65
[2016-11-18 03:24] LABS: HEMATOCRIT 43.3 % (42.0-52.0); HEMOGLOBIN 13.7 gm/dL (14.0-18.0); MCH 27.9 pg (26.0-34.0); MCHC 31.7 g/dL (28.0-37.0); RBC 4.92 mil/uL (4.50-6.00); RDW 14.5 % (10.5-14.5); WBC 14.8 thou/uL (4.0-11.0)
[2016-11-18 03:38] LABS: ANION GAP < 0 mmol/L (7-16); BUN 36 mg/dL (7-18); CALCIUM 8.7 mg/dL (8.5-10.1); CHLORIDE 96 mmol/L (98-107); CO2 42 mmol/L (21-32); CREATININE 1.3 mg/dL (0.7-1.3); GLUCOSE 141 mg/dL (74-106); POTASSIUM 4.1 mmol/L (3.5-5.1); SODIUM 137 mmol/L (136-145)
[2016-11-19 03:49] VITALS: BP 106/62
[2016-11-19 04:04] LABS: BUN 36 mg/dL (7-18); CALCIUM 8.7 mg/dL (8.5-10.1); CHLORIDE 92 mmol/L (98-107); CREATININE 1.2 mg/dL (0.7-1.3); GLUCOSE 82 mg/dL (74-106); POTASSIUM 4.2 mmol/L (3.5-5.1); SODIUM 139 mmol/L (136-145)
[2016-11-19 04:12] LABS: CO2 > 45 mmol/L (21-32)
[2016-11-19 08:10] VITALS: BP 121/71
[2016-11-19] MEDS ORDERED: PACERONE 200 M200 M1 PO (13:56)
[2016-11-19] MEDS ORDERED: IMDUR 30 MG TAB30 M1 PO (13:56)
[2016-11-19] MEDS ORDERED: ENOXAPARIN40 MG/0.1 SUBQ (13:56)
[2016-11-19] MEDS ORDERED: ALBUTEROL2.5 MG/0.5 INH (13:56)
[2016-11-19] MEDS ORDERED: ATORVASTATIN CA80 MG PO (13:56)
[2016-11-19] MEDS ORDERED: ACETAMINOPHEN325 M1 PO (13:57)
[2016-11-19] MEDS ORDERED: COZAAR 25 MG TA25 M1 PO (13:57)
[2016-11-19] MEDS ORDERED: CARVEDILOL12.5 MG PO (13:57)
[2016-11-19] MEDS ORDERED: ASPIR 8181 MG PO (13:57)
[2016-11-19] MEDS ORDERED: ALDACTONE25 MG PO (13:57)
[2016-11-19] MEDS ORDERED: SENOKOT-S1 TA1 PO (13:58)
[2016-11-19] MEDS ORDERED: DEMADEX 2020 MG/1 TA PO (13:58)
== END 2016-11-19 15:40 | DRG 286 ==
LOC: ER 15:32 → ICU 20:17 → EROBS 20:17 → ICU 21:19 → 2N 11-11 18:09 → ICU 11-12 11:24 → 2N 11-17 10:32
PROVIDERS: Internal Medicine Cardiovascular Disease; Internal Medicine Geriatric Medicine; Internal Medicine Pulmonary Disease; Nurse Practitioner; Nurse Practitioner Adult Health
PROC: B2161ZZ Fluoroscopy of Right and Left Heart using Low Osmolar Contrast (ICD-10-PCS; 2016-11-10)
PROC: 5A09357 Assistance with Respiratory Ventilation, Less than 24 Consecutive Hours, Continuous Positive Airway Pressure (ICD-10-PCS; 2016-11-10)
PROC: B2111ZZ Fluoroscopy of Multiple Coronary Arteries using Low Osmolar Contrast (ICD-10-PCS; principal; 2016-11-17)
PROC: 4A023N8 Measurement of Cardiac Sampling and Pressure, Bilateral, Percutaneous Approach (ICD-10-PCS; principal; 2016-11-17)
DX: I11.0 Hypertensive heart disease with heart failure (principal); J96.02 Acute respiratory failure with hypercapnia; J96.01 Acute respiratory failure with hypoxia; G93.41 Metabolic encephalopathy; G72.81 Critical illness myopathy; I48.92 Unspecified atrial flutter; R65.10 Systemic inflammatory response syndrome (SIRS) of non-infectious origin without acute organ dysfunction; I50.23 Acute on chronic systolic (congestive) heart failure; E11.9 Type 2 diabetes mellitus without complications; Z68.35 Body mass index [BMI] 35.0-35.9, adult; G47.33 Obstructive sleep apnea (adult) (pediatric); I25.10 Atherosclerotic heart disease of native coronary artery without angina pectoris; E66.01 Morbid (severe) obesity due to excess calories; E78.5 Hyperlipidemia, unspecified; N40.0 Benign prostatic hyperplasia without lower urinary tract symptoms; I48.91 Unspecified atrial fibrillation; I95.9 Hypotension, unspecified; Z87.891 Personal history of nicotine dependence; Z79.899 Other long term (current) drug therapy; Z90.49 Acquired absence of other specified parts of digestive tract
CPT/HCPCS: 10078; 10081; 10203

== ENCOUNTER 2016-11-19 13:32 | Inpatient (IN) | payer OTHER ==
[~2016-11-19] VITALS: Ht 170.2 cm; Wt 102.8 kg
--- NOTE | ~2016-11-19 | H ---
[facility] [place] [address] HISTORY AND PHYSICAL Name: KANG SHUKLA Room #: 509-P [facility] IN M.R.#: [id number] Admission: 11/19/16 Attend Phys: Antonio Telelz MD Discharge: 12/02/16 Date of : 41 Report #: [id number] THIS REPORT FOR: //name// CC: Ed Tellez HISTORY OF PRESENT ILLNESS: The patient is a 76-year-old male DICTATION ENDS HERE <ELECTRONICALLY SIGNED> By: Antonio Tellez MD 12/02/16 1821 1307 1330 Antonio Tellez MD /nt
--- NOTE | ~2016-11-19 | HC ---
[facility] [place] [address] CONSULTATION Name: KANG SHUKLA Rosendo Room #: 509-P [facility] IN ..#: [id number] Admission: 11/19/16 Attend Phys: Antonio Tellez MD Discharge: Date of : 41 Report #: [id number] THIS REPORT FOR: //name// CC: Ed Tellez MD DATE OF SERVICE: 11/24/2016 CHIEF COMPLAINT: Sacral pressure ulceration. HISTORY OF PRESENT ILLNESS: This is a 76-year-old male patient with a history of respiratory failure and cardiomyopathy and diabetes who is noted to have pressure ulceration. I have been asked to see him with regard to ongoing wound care. The patient denies any significant pain at this time. PAST MEDICAL HISTORY: Positive for history of encephalopathy, likely multifactorial, general debilitation, hypercapnic respiratory failure, cardiomyopathy, coronary artery disease, hypertension, diabetes mellitus and obesity. FAMILY HISTORY: Noncontributory. CURRENT MEDICATIONS: Include amiodarone, magnesium hydroxide, Isordil, torsemide, tamsulosin, spironolactone, losartan, aspirin, carvedilol, atorvastatin, insulin, glucagon. ALLERGIES: No known drug allergies. REVIEW OF SYSTEMS: CONSTITUTIONAL: No fever, chills, weight loss. NEUROLOGICAL: The patient has focal weakness. ENT: The patient denies earache, nasal drainage, or sore throat. CARDIOVASCULAR: The patient denies chest pain or palpitations. PULMONARY: The patient complains of mild shortness of breath. Denies cough or sputum production. GASTROINTESTINAL: Denies nausea, abdominal pain. ORTHOPEDIC: The patient denies pain or swelling in the extremities. Other systems are negative. PHYSICAL EXAMINATION: VITAL SIGNS: At this time include temperature 97.9, pulse 96, respiratory rate of 20, blood pressure 95/51. GENERAL: This is a chronically ill-appearing male patient who appears in no distress. HEENT: Head normocephalic. Nose and throat clear. [address] [address] CONSULTATION Name: KANG SHUKLA Room #: 509-P [facility] IN [facility].#: [id number] Admission: 11/19/16 Attend Phys: Antonio Tellez MD Discharge: Date of : 41 Report #: [id number] NECK: Supple. LUNGS: Diminished. HEART: Regular rhythm without murmur. ABDOMEN: Soft, slightly distended. The sacral region demonstrates a stage III ulcer to the right sacral gluteal region that remains relatively superficial. EXTREMITIES: Without evidence of ulceration. Mild edema noted. CLINICAL IMPRESSION: Stage III sacral pressure ulceration. RECOMMENDATIONS: At this point in time, we will recommend a bordered foam dressing to be changed on a daily basis and as needed. He will need to be turned and repositioned while in bed. I appreciate being asked to see him in consultation. <ELECTRONICALLY SIGNED> By: Sukumar Benítez MD 11/26/16 0911 1733 [id number] Sukumar Benítez MD /alisia
--- NOTE | ~2016-11-19 | PLAN ---
[facility] [place] [address] [place] [address] REHAB UNIT PLAN OF CARE Name: KANG SHUKLA Rosendo Room #: 509-P [facility] IN ..#: [id number] Admission: 11/19/16 Attend Phys: Antonio Tellez MD Discharge: 12/02/16 Date of : 41 Report #: [id number] THIS REPORT FOR: //name// CC: Ed Tellez The patient was seen back in followup. He is in no distress. Last recorded temperature 36.9, pulse 65, respirations 18, blood pressure 101/63. No focal calf swelling. He is on 3 liters nasal prong O2. Transfers are min assist. Gait is 90 feet contact guard with a front-wheeled walker. In occupational therapy, lower body dressing is max assist. In speech therapy, he has mild to moderate comprehensive deficits with amin-mj-qjzvstru expressive deficits. ASSESSMENT: 1. Encephalopathy, likely multifactorial. 2. Medical complexity with generalized debilitation. 3. Acute hypercapnic respiratory failure. 4. Newly diagnosed cardiomyopathy with diuresis as per cardiology. 5. Atherosclerotic coronary artery disease. 6. Hypertension. 7. Diabetes mellitus. 8. Obesity. PLAN: The overall plan of care is based on the preadmission screen, post-admission physician evaluation and information garnered from therapy assessments. 1. Estimated length of stay is probably at least 10 days to 2 weeks. 2. Medical prognosis is reasonably good. 3. Anticipated interventions includes the interdisciplinary acute inpatient rehabilitation program with PT, OT, speech rehab nursing assisting regarding medication management, skin care prophylaxis, bowel and bladder issues and nursing education. Case management is involved as well as the information security consultant physicians. 4. Anticipated functional outcomes would be for the patient to become modified independent with transfers, mobility and ADLs at least at the walker level to return back to the home setting. Goal is also to improve as far as his cognition with his encephalopathy. 5. Discharge destination is back to the home setting where he lives with his . 6. Expected therapy by discipline includes PT, OT and speech 1 hour per day each 5 days a week throughout the duration of the acute inpatient rehabilitation stay. <ELECTRONICALLY SIGNED> By: Antonio Tellez MD 12/02/16 1821 1311 1450 Antonio Tellez MD /nt
--- NOTE | ~2016-11-19 | HC ---
[facility] [place] [address] [place] [address] CONSULTATION Name: KANG SHUKLA Rosendo Room #: 509-P [facility] IN ..#: [id number] Admission: 11/19/16 Attend Phys: Antonio Tellez MD Discharge: Date of : 41 Report #: [id number] THIS REPORT FOR: //name// CC: Ed Tellez DATE OF SERVICE: 11/22/2016 TYPE OF REPORT: Neuro behavioral status exam. AGE: 76. ATTENDING PHYSICIAN: Antonio Tellez M.D. BUILDING SPECIALIST: Walt Valadez, PhD. CLINICAL PRESENTATION: The patient is a 76-year-old male admitted to [facility] rehabilitation unit for comprehensive inpatient rehabilitation program to improve functional mobility, activities of daily living and self-care and mental status secondary to impairment from medical complexity with general debilitation. He carries a diagnosis that includes encephalopathy that is multifactorial, acute hypercapnic respiratory failure, newly diagnosed cardiomyopathy with diuresis, atherosclerotic coronary artery disease, hypertension, diabetes mellitus and obesity. A complete description of his medical condition and history along with medications can be found in his medical record. Neuropsychological consultation was requested to provide assistance in the assessment of cognitive and emotional status and to provide recommendations and services. Prior to this most recent medical event, he was living independently at home with his . The patient has no children. He has 1 brother and 1 sister. The patient has a masters degree in public administration. He reports having multiple types of jobs throughout his working career. 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 TECHNIQUES UTILIZED: Clinical interview, review of medical records, staff consultation and behavioral observation, mini mental status exam 2 standard version, clock drawing, and calibrated ideational fluency assessment (letter and category fluency). EXAMINATION FINDINGS: The patient was alert and cooperative with the assessment. He was unable to accurately describe the reason for his hospitalization. The patient reports having had an amnestic period that preceded his hospitalization and eventually awakening during therapy. He does not present with an aphasia. However, his speech is dysarthric and difficult [facility] [address] [place] [address] CONSULTATION Name: KANG SHUKLA Room #: 509-P [facility] IN ..#: [id number] Admission: 11/19/16 Attend Phys: Antonio Tellez MD Discharge: Date of : 41 Report #: [id number] to understand. He does not report auditory or visual hallucinations, suicidal ideation, difficulty with sleep, appetite or depressed mood. Variability in memory is described, which he describes as slight. He does not acknowledge difficulty with word finding. Increased anxiety is attributed to his having sustained a fall when attempting to visit him 2 days ago. She is reported to have struck her head hard on a concrete driveway and breaking several teeth. Her sister is reported to be helping her at their home. His performance on the MMSE 2 brief version was in the mildly impaired range with a raw score of 13 of 16. The patient was 3/3 for initial registration, 4/5 for orientation to time and 5/[address]. He was 1/3 for immediate recall of 3 items after a brief time delay and distraction. Performance improved on the MMSE 2 standard version to a raw score 25 of 30, which is a T score 39th percentile rank of 14. He was 3 of 5 for serial 7's. The patient was able to read and follow single command, write a sentence and place the hands at a designated time on the clock drawing. Naming was within normal limits. Severe impairment is noted with letter fluency. His raw score of 11 and T-score of 27, which is at the first percentile. Category fluency suggests some mild level with dysfunction with a raw score of 32, T-score 37 percentile rank at 10. Total fluency was in the moderate to severe range of impairment with a raw score of 43 percentile and rank of less than 1. Deficits in letter fluency often suggest impairment with executive functioning when engaged in logical organization and problems solving. DIAGNOSTIC IMPRESSION: Neurocognitive disorder, unspecified, without behavior disorder, extent to be determined, likely in the mild to moderate range. RECOMMENDATIONS: The patient will likely require assistance with management of medications and nutrition upon discharge. Additional help will be necessary with instrumental activities of daily living for hime to maintain safety. A followup neuropsych assessment will be of benefit following his recovery in approximately 2-3 more months to clarify the level of cognitive dysfunction. At this time, assistance in cognitive rehabilitation with higher level executive functioning will be helpful. Thank you very much for allowing me to provide the consultation on this patient. <ELECTRONICALLY SIGNED> By: Walt Valadez, PhD 11/29/16 1420 1450 212 Walt Valadez, PhD /nt
--- NOTE | ~2016-11-19 | H ---
[facility] [place] [address] [place] [address] HISTORY AND PHYSICAL Name: VAZQUEZKANG Rosendo Room #: 509-P [facility]R.[facility] [id number] Admission: 11/19/16 Attend Phys: Antonio Tellez MD Discharge: 12/02/16 Date of : 41 Report #: [id number] THIS REPORT FOR: //name// CC: Ed Tellze HISTORY OF PRESENT ILLNESS: The patient is a 76-year-old white male, originally admitted to [facility] with shortness of breath, noted to have acute congestive heart failure. He underwent cardiac catheterizations with plans to treat medically. He was noted to have acute hypercapnic respiratory failure with newly diagnosed cardiomyopathy. He also has an encephalopathy with significant cognitive changes. He was admitted for acute in-hospital inpatient rehabilitation. PAST MEDICAL HISTORY: Includes hypertension, obstructive sleep apnea, diabetes mellitus type 2, obesity, nasal prong O2 with CPAP at night premorbidly. FAMILY HISTORY: Noncontributory. PAST SURGICAL HISTORY: See above. MEDICATIONS: Please see the full medication listing. Each of these was individually reconciled upon admission to the acute rehab zaragoza. They include jshw-nzm-jeaaqfh, supplements, etc. ALLERGIES: None. SOCIAL HISTORY: Lives at home with his , 1-2 steps in. Did not utilize gait aids. is retired, but notes he will have to be reasonably functional for her to care for him. REVIEW OF SYSTEMS: No current complaints of chest pain, shortness of breath or abdominal discomfort. He does have some shortness of breath with limited activity. PHYSICAL EXAMINATION: GENERAL: A 76-year-old white male, significantly obese, no obvious distress. Groggy, but easily arouses. VITAL SIGNS: Last recorded temperature 36.3, pulse 73, respirations 18, blood pressure 108/64. He has a raspy voice. He is on 4 liters nasal prong O2. Occasional cough. HEENT: Facies appeared symmetric. CHEST: Some decreased breath sounds throughout. CARDIAC: Sounded regular rate and rhythm. ABDOMEN: Bowel sounds positive, nontender, obese. GENITOURINARY: Deferred. RECTAL: Deferred. [facility] [address] [place] [address] HISTORY AND PHYSICAL Name: KANG SHUKLA Room #: 509-P [facility] M.R.#: [id number] Admission: 11/19/16 Attend Phys: Antonio Tellez MD Discharge: 12/02/16 Date of : 41 Report #: [id number] NEUROLOGIC: He does have some latency to his responses. Some decreased insight. EXTREMITIES: functional range of motion of both upper extremities with strength a grade 3+ to 4-/5. Lower extremities, no focal calf swelling, functional range of motion with strength a grade 3+ to 4-/5. Prior to rehab transfer, he has been mod assist with sit to stand and min assist, ambulated short distances 13 feet. ASSESSMENT: A 76-year-old white male with the following problem list: 1. Encephalopathy, likely multifactorial. 2. Medical complexity with generalized debilitation. 3. Acute hypercapnic respiratory failure. 4. Newly diagnosed cardiomyopathy with diuresis as per cardiology. 5. Atherosclerotic coronary artery disease. 6. Hypertension. 7. Diabetes mellitus. 8. Obesity. PLAN: The patient is admitted for acute in-hospital inpatient rehabilitation. From a postadmission physician evaluation perspective, there are no relevant changes since the preadmission screening. Please see the above review of prior and current medical and functional conditions and comorbidities. Please see the patient's previous and current functional status. As far as risk of complications, he has multiple medical comorbidities as noted above. Initial plan of care involves the interdisciplinary acute inpatient rehabilitation program. Measurable functional goals would be for him to become modified independent with mobility and ADLs without gait aids. Goal would be in the short run for him to be independent at a walker level. Prognosis is reasonably good. Estimated length of stay will be dependent upon how he progress in therapies. Potential barriers would include his multiple medical comorbidities and decreased functional status. <ELECTRONICALLY SIGNED> By: Antonio Tellez MD 12/02/16 1821 1243 1316 Antonio Tellez MD /nt
[2016-11-19] MEDS ORDERED: IMDUR 30 MG TAB30 M1 PO (13:56)
[2016-11-19] MEDS ORDERED: ENOXAPARIN40 MG/0.1 SUBQ (13:56)
[2016-11-19] MEDS ORDERED: ATORVASTATIN CA80 MG PO (13:56)
[2016-11-19] MEDS ORDERED: PACERONE 200 M200 M1 PO (13:56)
[2016-11-19] MEDS ORDERED: ALBUTEROL2.5 MG/0.5 INH (13:56)
[2016-11-19] MEDS ORDERED: COZAAR 25 MG TA25 M1 PO (13:57)
[2016-11-19] MEDS ORDERED: ASPIR 8181 MG PO (13:57)
[2016-11-19] MEDS ORDERED: CARVEDILOL12.5 MG PO (13:57)
[2016-11-19] MEDS ORDERED: ALDACTONE25 MG PO (13:57)
[2016-11-19] MEDS ORDERED: ACETAMINOPHEN325 M1 PO (13:57)
[2016-11-19] MEDS ORDERED: SENOKOT-S1 TA1 PO (13:58)
[2016-11-19] MEDS ORDERED: DEMADEX 2020 MG/1 TA PO (13:58)
[2016-11-19 18:04] VITALS: BP 90/51
[2016-11-20 05:25] VITALS: BP 108/64
[2016-11-20 05:58] LABS: HEMOGLOBIN 12.9 gm/dL (14.0-18.0); MCH 28.4 pg (26.0-34.0); MCV 86.2 fL (80.0-100.0); RBC 4.53 mil/uL (4.50-6.00); RDW 14.8 % (10.5-14.5); WBC 15.1 thou/uL (4.0-11.0)
[2016-11-20 06:07] LABS: CALCIUM 8.9 mg/dL (8.5-10.1); CREATININE 1.2 mg/dL (0.7-1.3)
[2016-11-20 16:00] VITALS: BP 87/37
[2016-11-21 03:27] LABS: HEMATOCRIT 40.2 % (42.0-52.0); HEMOGLOBIN 13.1 gm/dL (14.0-18.0); MCH 28.3 pg (26.0-34.0); MCHC 32.5 g/dL (28.0-37.0); MCV 86.9 fL (80.0-100.0); RBC 4.63 mil/uL (4.50-6.00); RDW 14.7 % (10.5-14.5); WBC 10.2 thou/uL (4.0-11.0)
[2016-11-21 03:33] LABS: CALCIUM 8.9 mg/dL (8.5-10.1); CREATININE 1.3 mg/dL (0.7-1.3); POTASSIUM 3.9 mmol/L (3.5-5.1)
[2016-11-21 04:34] VITALS: BP 99/65
[2016-11-21 07:35] VITALS: BP 101/63
[2016-11-21 15:56] VITALS: BP 90/58
[2016-11-22 03:32] VITALS: BP 84/56
[2016-11-22 07:24] LABS: ANION GAP < 0 mmol/L (7-16); BUN 31 mg/dL (7-18); CALCIUM 8.7 mg/dL (8.5-10.1); CHLORIDE 93 mmol/L (98-107); CO2 41 mmol/L (21-32); CREATININE 1.1 mg/dL (0.7-1.3); GLUCOSE 139 mg/dL (74-106); POTASSIUM 4.9 mmol/L (3.5-5.1); SODIUM 133 mmol/L (136-145)
[2016-11-22 08:00] VITALS: BP 81/43
[2016-11-22 15:30] VITALS: BP 91/55
[2016-11-23 06:11] VITALS: BP 102/63
[2016-11-23 16:30] VITALS: BP 81/49
[2016-11-24 03:57] VITALS: BP 95/55
[2016-11-24 05:18] LABS: CALCIUM 8.7 mg/dL (8.5-10.1); POTASSIUM 4.9 mmol/L (3.5-5.1)
[2016-11-24 08:12] LABS: ABG SAMPLE TYPE ARTERIAL; HCO3 37.6 mmol/L (22.0-26.0); LACTATE 0.94 mmol/L (0.5-2.0); O2(CT) 17.2 mL/dL (15.0-23.0); O2Hb 89.9 % (92.0-98.0); PCO2 58.4 mmHg (35.0-45.0); PO2 62.8 mmHg (80.0-100.0); pH 7.427 (7.360-7.450); tCO2 39.4 mmol/L (24.0-30.0)
[2016-11-24 08:13] LABS: ABG COMMENT ROOM AIR; STICK SITE L.RADIAL
[2016-11-24 16:00] VITALS: BP 95/51
[2016-11-25 04:00] VITALS: BP 103/66
[2016-11-26 05:30] VITALS: BP 110/59
[2016-11-26 05:37] LABS: CALCIUM 8.6 mg/dL (8.5-10.1); CREATININE 1.2 mg/dL (0.7-1.3); POTASSIUM 4.8 mmol/L (3.5-5.1)
[2016-11-26 15:39] VITALS: BP 89/57
[2016-11-26 20:30] VITALS: BP 101/68
[2016-11-27 05:52] VITALS: BP 107/68
[2016-11-27 09:14] VITALS: BP 99/49
[2016-11-27 16:00] VITALS: BP 95/57
[2016-11-28 06:41] VITALS: BP 106/64
[2016-11-28 16:24] VITALS: BP 91/49
[2016-11-29 06:00] VITALS: BP 97/55
[2016-11-29 16:28] VITALS: BP 90/57
[2016-11-30 04:50] VITALS: BP 95/61
[2016-11-30 07:49] VITALS: BP 95/48
[2016-11-30 16:46] VITALS: BP 84/53
[2016-12-01 03:35] LABS: CALCIUM 9.3 mg/dL (8.5-10.1); CREATININE 1.3 mg/dL (0.7-1.3); POTASSIUM 4.5 mmol/L (3.5-5.1)
[2016-12-01 06:00] VITALS: BP 103/70
[2016-12-01 15:41] VITALS: BP 102/60
[2016-12-01 16:42] VITALS: BP 102/60
[2016-12-02 05:51] VITALS: BP 111/63
[2016-12-02 07:57] LABS: CALCIUM 9.2 mg/dL (8.5-10.1); CREATININE 1.2 mg/dL (0.7-1.3); POTASSIUM 4.3 mmol/L (3.5-5.1)
[2016-12-02 08:41] VITALS: BP 102/60
[2016-12-02] MEDS ORDERED: FLOMAX0.4 MG PO (09:26)
[2016-12-02] MEDS ORDERED: ATORVASTATIN CA40 MG PO (09:27)
[2016-12-02] MEDS ORDERED: PACERONE 200 M200 M1 PO (09:27)
[2016-12-02] MEDS ORDERED: IMDUR 30 MG TAB30 M1 PO (09:27)
[2016-12-02] MEDS ORDERED: CARVEDILOL12.5 MG PO (09:27)
[2016-12-02] MEDS ORDERED: ALDACTONE25 MG PO (09:28)
[2016-12-02] MEDS ORDERED: COZAAR 50 MG TA50 M1 PO (09:28)
[2016-12-02] MEDS ORDERED: DEMADEX20 MG PO (09:28)
[2016-12-02 09:50] VITALS: BP 102/60
== END 2016-12-02 12:45 | disposition home health service (06) | DRG 70 ==
PROVIDERS: Internal Medicine Geriatric Medicine; Internal Medicine Pulmonary Disease; Nurse Practitioner Adult Health; Physical Medicine & Rehabilitation
DX: G93.40 Encephalopathy, unspecified (principal); J96.02 Acute respiratory failure with hypercapnia; L89.153 Pressure ulcer of sacral region, stage 3; I50.23 Acute on chronic systolic (congestive) heart failure; J18.9 Pneumonia, unspecified organism; J96.01 Acute respiratory failure with hypoxia; I42.9 Cardiomyopathy, unspecified; E87.3 Alkalosis; E87.1 Hypo-osmolality and hyponatremia; R53.81 Other malaise; I25.10 Atherosclerotic heart disease of native coronary artery without angina pectoris; E11.9 Type 2 diabetes mellitus without complications; E66.9 Obesity, unspecified; G31.84 Mild cognitive impairment of uncertain or unknown etiology; F03.90 Unspecified dementia, unspecified severity, without behavioral disturbance, psychotic disturbance, mood disturbance, and anxiety; I11.0 Hypertensive heart disease with heart failure; E78.5 Hyperlipidemia, unspecified; J44.9 Chronic obstructive pulmonary disease, unspecified; G47.33 Obstructive sleep apnea (adult) (pediatric); R33.9 Retention of urine, unspecified; Z90.49 Acquired absence of other specified parts of digestive tract; Z99.81 Dependence on supplemental oxygen; Z68.35 Body mass index [BMI] 35.0-35.9, adult
CPT/HCPCS: 10112

== ENCOUNTER 2016-12-14 14:35 | Emergency (ER) | payer OTHER ==
[~2016-12-14] VITALS: Ht 170.2 cm; Wt 92.1 kg
[~2016-12-14 14:35] MED LIST changes: +ACETAMINOPHEN325 M1 PO; +ALBUTEROL2.5 MG/0.5 INH; +ALDACTONE25 MG PO; +ASPIR 8181 MG PO; +ATORVASTATIN CA40 MG PO; +ATORVASTATIN CA80 MG PO; +CARVEDILOL12.5 MG PO; +COZAAR 25 MG TA25 M1 PO; +COZAAR 50 MG TA50 M1 PO; +DEMADEX 2020 MG/1 TA PO; +DEMADEX20 MG PO; +ENOXAPARIN40 MG/0.1 SUBQ; +IMDUR 30 MG TAB30 M1 PO; +PACERONE 200 M200 M1 PO; +SENOKOT-S1 TA1 PO
[2016-12-14 15:26] LABS: BASOPHILS 0.8 % (0.0-2.0); EOSINOPHILS 5.9 % (0.0-3.0); HEMATOCRIT 42.7 % (42.0-52.0); HEMOGLOBIN 14.2 gm/dL (14.0-18.0); LYMPHOCYTES 16.8 % (24.0-44.0); MANUAL DIFF NO; MCHC 33.2 g/dL (28.0-37.0); MCV 84.5 fL (80.0-100.0); MONOCYTES 11.4 % (1.0-8.0); PLATELET COUNT 277 thou/uL (150-400); POLYS 65.1 % (36.0-66.0); RBC 5.06 mil/uL (4.50-6.00); RDW 15.3 % (10.5-14.5); WBC 9.2 thou/uL (4.0-11.0)
[2016-12-14 15:38] LABS: CALCIUM 9.3 mg/dL (8.5-10.1); CREATININE 1.5 mg/dL (0.7-1.3); POTASSIUM 4.3 mmol/L (3.5-5.1)
[2016-12-14 15:43] LABS: TOTAL BILIRUBIN 0.4 mg/dL (<0.1-1.0); TOTAL PROTEIN 8.5 g/dL (6.4-8.2)
[2016-12-14 16:54] LABS: URINE BILIRUBIN NEGATIVE (Negative); URINE BLOOD NEGATIVE (Negative); URINE COLOR YELLOW; URINE GLUCOSE-RANDOM* NEGATIVE (Negative); URINE KETONES NEGATIVE (Negative); URINE LEUKOCYTES-REFLEX NEGATIVE (Negative); URINE PROTEIN (DIPSTICK) NEGATIVE (Negative); URINE UROBILINOGEN 0.2 E.U./dl (0.2-1.0)
[2016-12-14] MEDS ORDERED: CITRATE OF MAG296 ML PO (17:23)
== END 2016-12-14 18:57 | disposition home or self-care (01) ==
LOC: ER 14:35
PROVIDERS: Physician Assistant
DX: K59.00 Constipation, unspecified (principal); E11.9 Type 2 diabetes mellitus without complications; J44.9 Chronic obstructive pulmonary disease, unspecified; I11.0 Hypertensive heart disease with heart failure; I50.9 Heart failure, unspecified; Z90.89 Acquired absence of other organs; Z87.891 Personal history of nicotine dependence

== ENCOUNTER 2017-02-26 13:02 | Inpatient (IN) | payer OTHER ==
[~2017-02-26] VITALS: Ht 172.7 cm; Wt 92.1 kg
--- NOTE | ~2017-02-26 | P ---
[facility] [place] [address] PROCEDURE REPORT Name: KANG SHUKLA Room #: 211-P [facility] IN ..#: [id number] Admission: 02/26/17 Attend Phys: Royal Castro Discharge: 02/28/17 Date of : 42 Report #: [id number] THIS REPORT FOR: //name// CC: Ed Yorkcusgeeta GibbonsRandell Salbador PROCAEDURE: ICD implantation. PREOPERATIVE DIAGNOSIS: Ischemic cardiomyopathy. POSTOPERATIVE DIAGNOSIS: Ischemic cardiomyopathy. HISTORY OF PRESENT ILLNESS: The patient is a 76-year-old male with history of an ischemic cardiomyopathy, EF of 20-25%, who is intolerant of both JOAN, ARB, and beta rey due to symptomatic hypotension with syncope and near syncope. His ejection fraction has not improved after 3 months of therapy. He has class 3 heart failure symptoms. He is here for ICD implantation for primary prevention of sudden cardiac . ANESTHESIA: The patient underwent MAC anesthesia with no anesthesia related complications. DESCRIPTION OF PROCEDURE: The patient underwent informed consent where we discussed the details of the procedure including the risks, which include, but not limited to bleeding, infection, vascular damage, cardiac perforation, and pneumothorax. He understood these risks and was willing to proceed. As such, the patient was brought to the EP laboratory in a fasting and sedated state and prepped and draped in a sterile fashion. He received IV vancomycin for antibiotic prophylaxis and a venogram showing patency of the left axillary vein. Next, I injected 20 mL of lidocaine below the level of the left clavicle. Incision was made. A pocket was created over the prepectoral fascia and access was obtained once to the left axillary vein using the extrathoracic approach. A sheath was positioned using the modified Seldinger technique and a lead was advanced. There was some tortuosity at the SVC junction, therefore I exchanged for a long sheath and then placed the lead into the right atrium. Next, the lead was advanced into the right ventricle. I took the lead to the right ventricular apex. Before screwing it in, I looked at the R waves in this location and they were very small at around 2-2-1/2 millivolts. I looked in multiple locations at this site. Of note, he had a very large left ventricle. I therefore placed the lead in a mid septal location where I had R waves that were more acceptable. I did use a dual coil lead given the large left ventricular diameter. The lead was sutured to the prepectoral fascia and the device was connected and placed in the pocket, then the pocket was irrigated with vancomycin and then the pocket was closed in 3 layers using 2-0 for the deep layer, 3-0 for the middle layer, and 4-0 for the subcuticular layer. [facility] [address] [place] [address] PROCEDURE REPORT Name: KANG SHUKLA Room #: 211-P DIS IN M.R.#: [id number] Admission: 02/26/17 Attend Phys: Royal Castro Discharge: 02/28/17 Date of : 42 Report #: [id number] Surgical glue was placed on the skin layer. The patient awoke neurologically and hemodynamically intact with no complications and 10 mL of blood loss. The implanted device was a [employer] model #[id number], serial #[id number]. The RV lead was a [employer] model #7120Q, 65 cm, serial #[id number]. The RV lead demonstrated an R-wave of 11.5 millivolts, pacing impedance of 830 ohms and pacing threshold 0.5 volts at 0.5 milliseconds. The device is programmed to the VVI 40 mode. The VT zone was set at 180-220 beats per minute with 3 rounds of burst followed by 3 rounds of ramp followed by max output shocks. The VF zone was set at greater than 220 beats per minute with ATP while charging followed by max output shocks. CONCLUSIONS: 1. Successful ICD implantation for primary prevention of sudden cardiac . 2. Satisfactory right ventricular pacing and sensing thresholds. <ELECTRONICALLY SIGNED> By: Sky Jarvis MD 03/02/17 1601 1503 1649 Sky Jarvis MD /nt
--- NOTE | ~2017-02-26 | EKG ---
[place] [address] [facility] [place] [address] ELECTROCARDIOGRAM REPORT Name: KANG SHUKLA Room #: 211-P [facility] IN M.R.#: [id number] Admission: 02/26/17 Attend Phys: Royal Castro Discharge: 02/28/17 Date of : 42 Report #: [id number] THIS REPORT FOR: //name// [facility] ED Test Date: 2017-02-26 Test Time: 13:08:13 Pat Name: KANG SHUKLA Department: Room: 211 Gender: M Renal Technician: [id number] : 1940 Requested By: Evan Miranda Order Number: [id number] MD: Perez France Measurements Intervals [place] Rate: 74 P: -15 AK: 258 QRS: -30 QRSD: 124 T: 134 QT: 460 QTc: 511 Interpretive Statements Sinus rhythm Prolonged AK interval IVCD Inferior infarct, old Compared to ECG 11/14/2016 09:51:44 First degree AV block now present Sinus rhythm has replaced atrial flutter Electronically Signed On 03-01-2017 20:23:14 CDT by Perez France [email or web address] <ELECTRONICALLY SIGNED> By: Perez France MD, [facility] 03/01/17 2023 1308 1308 Perez France MD, [facility] /EPI
--- NOTE | ~2017-02-26 | H ---
[facility] [place] [address] HISTORY AND PHYSICAL Name: VAZQUEZKANG A Room #: 211-P ADM IN ..#: [id number] Admission: 02/26/17 Attend Phys: Royal Castro Discharge: Date of : 42 Report #: [id number] THIS REPORT FOR: //name// CC: Ed Yorkcusgeeta Siu DATE OF SERVICE: 02/26/2017 CHIEF COMPLAINT: Shortness of breath. HISTORY OF PRESENT ILLNESS: The patient is a 76-year-old gentleman with known ischemic cardiomyopathy, admitted for evaluation of shortness of breath. He has coronary artery disease, it is not amenable to surgical treatment and paroxysmal atrial fibrillation. Recent echocardiogram revealed ejection fraction of 20-25%. His cardiac cath was approximately 3 months ago, but due to his situation, is only medical treatment. Unfortunately, his blood pressure does not support the use of a beta rey or JOAN inhibitor and in fact had a hospitalization for hypotension related to beta rey. He has been medically stabilized and now has been admitted for further cardiac evaluation and consideration of defibrillator. PAST MEDICAL HISTORY: As mentioned, ischemic cardiomyopathy, ejection fraction of 25%, coronary artery disease, paroxysmal atrial fibrillation, obstructive sleep apnea, diabetes type 2, dyslipidemia. PAST SURGICAL HISTORY: Noncontributory. FAMILY HISTORY: Noncontributory. SOCIAL HISTORY: No chronic alcohol or tobacco use. He is and lives with his . ALLERGIES: None. MEDICATIONS: Amiodarone, Lipitor, Coreg, Aldactone, aspirin, torsemide, Amaryl. REVIEW OF SYSTEMS: He denies headache, chest pain, shortness of breath, abdominal pain, nausea, vomiting, diarrhea, constipation, dysuria, syncope, falls. OBJECTIVE: VITAL SIGNS: Temperature 36.6, pulse 74, respirations 15, blood pressure ____, O2 sat 94% on room air. GENERAL: He is awake and alert, in no distress. LUNGS: Clear. [facility] [address] [place] [address] HISTORY AND PHYSICAL Name: KANG SHUKLA Room #: [address] [place] [address] [place] [facility]#: [id number] Admission: 02/26/17 Attend Phys: Royal Castro Discharge: Date of : 42 Report #: [id number] HEART: Regular. ABDOMEN: Soft, normoactive bowel sounds. EXTREMITIES: No edema. NEUROLOGIC: Intact. LABORATORY DATA: Reviewed. ASSESSMENT: 1. Ischemic cardiomyopathy, ejection fraction 20-25%. 2. Coronary artery disease. 3. Diabetes type 2. PLAN: Dr. Jarvis has seen him in consultation and is considering additional procedures. For now, we will hold his medicines and reassess once full cardiac workup in place. <ELECTRONICALLY SIGNED> By: Antonio Heaton MD 02/27/17 1637 0954 1021 Antonio Heaton MD /nt
[2017-02-26 13:02] VITALS: BP 71/39
[2017-02-26 13:24] LABS: ABSOLUTE NEUTROPHILS 6.8 thou/uL (1.4-8.2); BASOPHILS 0.6 % (0.0-2.0); EOSINOPHILS 3.8 % (0.0-3.0); HEMATOCRIT 37.9 % (42.0-52.0); HEMOGLOBIN 12.7 gm/dL (14.0-18.0); LYMPHOCYTES 16.2 % (24.0-44.0); MCH 29.1 pg (26.0-34.0); MCHC 33.5 g/dL (28.0-37.0); MCV 87.1 fL (80.0-100.0); MONOCYTES 10.9 % (1.0-8.0); PLATELET COUNT 290 thou/uL (150-400); POLYS 68.5 % (36.0-66.0); RBC 4.36 mil/uL (4.50-6.00); RDW 18.7 % (10.5-14.5); WBC 9.9 thou/uL (4.0-11.0)
[2017-02-26 13:26] LABS: MANUAL DIFF NO
[2017-02-26 13:33] LABS: ANION GAP 3 mmol/L (7-16); BUN 32 mg/dL (7-18); CALCIUM 9.2 mg/dL (8.5-10.1); CHLORIDE 94 mmol/L (98-107); CO2 36 mmol/L (21-32); CREATININE 1.3 mg/dL (0.7-1.3); GLUCOSE 278 mg/dL (74-106); POTASSIUM 4.1 mmol/L (3.5-5.1); SODIUM 133 mmol/L (136-145)
[2017-02-26 13:42] LABS: TROPONIN-I < 0.04 ng/mL (<0.04-0.07)
[2017-02-26] MEDS ORDERED: CARVEDILOL3.125 MG PO (13:44)
[2017-02-26] MEDS ORDERED: AMARYL2 MG PO (13:45)
[2017-02-26] MEDS ORDERED: ALLERGY RELIEF1 EAC3 PO (13:46)
[2017-02-26 13:58] LABS: ABG SAMPLE TYPE ARTERIAL; BE(vivo) 4.9 mmol/L (-2 to +3); HCO3 30.1 mmol/L (22.0-26.0); O2(CT) 16.2 mL/dL (15.0-23.0); STICK SITE L.BRACHIAL; pH 7.425 (7.360-7.450); sO2 95.2 % (92.0-98.0); tCO2 31.6 mmol/L (24.0-30.0)
[2017-02-26 16:31] VITALS: BP 93/56
[2017-02-26 17:05] VITALS: BP 95/54
[2017-02-26 17:16] VITALS: BP 117/71
[2017-02-26 17:40] LABS: PROTIME 10.1 Seconds (9.3-11.4)
[2017-02-26 19:51] VITALS: BP 92/61
[2017-02-27 05:56] VITALS: BP 99/62
[2017-02-27 07:11] VITALS: BP 93/59
[2017-02-27 15:20] VITALS: BP 105/67
[2017-02-27 19:29] VITALS: BP 100/60
[2017-02-27 23:48] VITALS: BP 96/62
[2017-02-28 03:15] VITALS: BP 113/66
[2017-02-28 04:29] LABS: HEMOGLOBIN 11.6 gm/dL (14.0-18.0); MCH 28.2 pg (26.0-34.0); MCHC 32.3 g/dL (28.0-37.0); MCV 87.3 fL (80.0-100.0); RBC 4.13 mil/uL (4.50-6.00); RDW 18.6 % (10.5-14.5); WBC 10.5 thou/uL (4.0-11.0)
[2017-02-28 04:32] LABS: CALCIUM 9.4 mg/dL (8.5-10.1)
[2017-02-28 07:53] VITALS: BP 115/71
[2017-02-28] MEDS ORDERED: HYDROCODON-ACE1 EAC7 PO (08:21)
[2017-02-28 10:08] VITALS: BP 115/71
[2017-02-28 10:42] VITALS: BP 115/71
[2017-02-28 11:11] VITALS: BP 92/54
[2017-02-28 16:40] VITALS: BP 115/71
== END 2017-02-28 15:32 | disposition home health service (06) | DRG 226 ==
LOC: ER 13:02 → 4W 15:51 → EROBS 15:51 → 4W 17:13 → 2N 02-27 15:15
PROVIDERS: Internal Medicine Cardiovascular Disease; Nurse Practitioner
PROC: 0JH609Z Insertion of Cardiac Resynchronization Defibrillator Pulse Generator into Chest Subcutaneous Tissue and Fascia, Open Approach (ICD-10-PCS; principal; 2017-02-27)
PROC: 02H63KZ Insertion of Defibrillator Lead into Right Atrium, Percutaneous Approach (ICD-10-PCS; principal; 2017-02-27)
PROC: 02HK3KZ Insertion of Defibrillator Lead into Right Ventricle, Percutaneous Approach (ICD-10-PCS; principal; 2017-02-27)
DX: I25.5 Ischemic cardiomyopathy (principal); I50.23 Acute on chronic systolic (congestive) heart failure; I11.0 Hypertensive heart disease with heart failure; E11.9 Type 2 diabetes mellitus without complications; J44.9 Chronic obstructive pulmonary disease, unspecified; I48.0 Paroxysmal atrial fibrillation; G47.33 Obstructive sleep apnea (adult) (pediatric); E78.5 Hyperlipidemia, unspecified; K21.9 Gastro-esophageal reflux disease without esophagitis; I25.10 Atherosclerotic heart disease of native coronary artery without angina pectoris; I95.89 Other hypotension; T50.995A Adverse effect of other drugs, medicaments and biological substances, initial encounter; Z90.49 Acquired absence of other specified parts of digestive tract; Z79.899 Other long term (current) drug therapy; Z79.82 Long term (current) use of aspirin; Z87.891 Personal history of nicotine dependence; Y92.89 Other specified places as the place of occurrence of the external cause

== ENCOUNTER 2017-08-28 16:14 | Emergency (ER) | payer OTHER, SELFPAY ==
[~2017-08-28] VITALS: Ht 170.2 cm; Wt 94.3 kg
[~2017-08-28 16:14] MED LIST changes: +ALLERGY RELIEF1 EAC3 PO; +CARVEDILOL3.125 MG PO; +HYDROCODON-ACE1 EAC7 PO
[2017-08-28] MEDS ORDERED: NORCO 5-325 TA1 EACH PO (18:14)
[2017-08-28 18:38] VITALS: BP 103/53
== END 2017-08-28 18:39 | disposition home or self-care (01) ==
LOC: ER 16:14
DX: S01.21XA Laceration without foreign body of nose, initial encounter (principal); S01.511A Laceration without foreign body of lip, initial encounter; S02.2XXA Fracture of nasal bones, initial encounter for closed fracture; E11.9 Type 2 diabetes mellitus without complications; I11.0 Hypertensive heart disease with heart failure; I50.9 Heart failure, unspecified; J44.9 Chronic obstructive pulmonary disease, unspecified; Z90.89 Acquired absence of other organs; Z87.891 Personal history of nicotine dependence; W17.2XXA Fall into hole, initial encounter; Y93.89 Activity, other specified; Y92.481 Parking lot as the place of occurrence of the external cause; Y99.8 Other external cause status

== ENCOUNTER 2017-09-17 17:54 | Inpatient (IN) | payer OTHER, SELFPAY ==
[~2017-09-17] VITALS: Ht 175.3 cm; Wt 104.3 kg
--- NOTE | ~2017-09-17 | HC ---
[facility] [place] [address] CONSULTATION Name: KANG SHUKLA Room #: 402-P [facility] IN ..#: [id number] Admission: 09/17/17 Attend Phys: Antonio Heaton MD Discharge: 09/20/17 Date of : 41 Report #: [id number] THIS REPORT FOR: //name// CC: Ed Heaton DATE OF SERVICE: 09/18/2017 REFERRING PHYSICIAN: Antonio Heaton MD. REASON FOR REFERRAL: COPD. HISTORY OF PRESENT ILLNESS: The patient is a 76-year-old white male who presents to Emergency Room with congestion, dyspnea. A pulmonary consultation was requested. The patient is followed longitudinally by Dr. Siu for sleep apnea. He is on CPAP. He has been doing fairly well until for the past week or so. He has had trouble with congestion, dyspnea. With worsening symptoms, he presented to the Emergency Room. He has had a mild productive cough of yellow-mcdonough sputum. Otherwise, denies any chest pain, hemoptysis, nausea, vomiting, or diarrhea. PAST MEDICAL HISTORY: Notable for ANJEL, on home CPAP; COPD; heart failure; hypertension; diabetes; obesity; seasonal allergies. PAST SURGICAL HISTORY: Unremarkable. ALLERGIES: None noted. HOME MEDICATIONS: Reviewed. These include [place], aspirin, amiodarone, Lipitor, Aldactone, Demadex, Amaryl. FAMILY HISTORY: Noncontributory. SOCIAL HISTORY: The patient has smoked, but quit in 1960s. Denies any alcohol use. He is retired. He lives with his . REVIEW OF SYSTEMS: As mentioned above. Otherwise, 10-point system review negative. PHYSICAL EXAMINATION: GENERAL: He is awake, alert, in no apparent distress. VITAL SIGNS: Temperature is 97 degrees Fahrenheit, pulse is 68, respiratory rate is 18, blood pressure 100/52 mmHg, saturation 95%. HEENT: Normocephalic and atraumatic. NECK: Supple without any lymphadenopathy or thyromegaly. [facility] [address] [place] [address] CONSULTATION Name: KANG SHUKLA Room #: [facility] IN [facility].#: [id number] Admission: 09/17/17 Attend Phys: Antonio Heaton MD Discharge: 09/20/17 Date of : 41 Report #: [id number] CHEST: Breath sounds are good bilaterally with mild expiratory wheezes. CARDIOVASCULAR: Normal S1, S2. No murmurs or gallop. There is no JVD. There is no carotid bruit. Pulses are 2+/4+ bilaterally. ABDOMEN: Soft, nontender. No organomegaly or masses felt. GENITOURINARY: Deferred. RECTAL: Deferred. EXTREMITIES: There is no edema, cyanosis, or clubbing. LABORATORY DATA: Chest x-ray shows small lung volumes, cardiomegaly, otherwise lung north are clear. Influenza A and B antigens negative. Electrolytes normal except for creatinine of 1.2. WBC 13,200, hemoglobin 11.9, platelets are normal. IMPRESSION: 1. Exacerbation of chronic obstructive pulmonary disease. 2. Possible pneumonia with a productive cough of purulent sputum. Chest x-ray does not show obvious infiltrates. 3. Obstructive sleep apnea, on continuous positive airway pressure. RECOMMENDATION: Agree with current plans with broad spectrum antibiotics, corticosteroids, bronchodilators. DVT and GI prophylaxis is recommended. Thank you for this consultation. <ELECTRONICALLY SIGNED> By: Kenneth Piña MD 09/21/17 1707 1513 1920 Kenneth Piña MD /nt
--- NOTE | ~2017-09-17 | H ---
[facility] [place] [address] HISTORY AND PHYSICAL Name: KANG SHUKLA Rosendo Room #: 402-P [facility] IN M.R.#: [id number] Admission: 09/17/17 Attend Phys: Antonio Heaton MD Discharge: Date of : 42 Report #: [id number] THIS REPORT FOR: //name// CC: Ed Heaton DATE OF SERVICE: 09/17/2017 CHIEF COMPLAINT: Shortness of breath and cough. HISTORY OF PRESENT ILLNESS: The patient is a 76-year-old gentleman who came to the Emergency Room with cough and congestion, said for the last 4 or 5 days he has had sinus congestion and a productive cough of green sputum. He has had a little bit of shortness of breath. He denies any fever or chills. He does wear CPAP at night with oxygen, but he has had worsening symptoms for the last few days. PAST MEDICAL HISTORY: COPD, obstructive sleep apnea on home CPAP, chronic congestive heart failure, hypertension and diabetes type 2. PAST SURGICAL HISTORY: Noncontributory. FAMILY HISTORY: Unknown. SOCIAL HISTORY: He is , lives with his , remote tobacco history. None currently. ALLERGIES: None. MEDICATIONS: Amaryl 2 mg, Demadex 40 mg, Aldactone 25 mg, Lipitor 40 mg, amiodarone 200 mg, hydrocodone 5 mg p.r.n. and aspirin 81 mg. REVIEW OF SYSTEMS: He complains of a cough. Otherwise, no headache, chest pain, shortness of breath, abdominal pain, nausea, vomiting, diarrhea, constipation, dysuria or syncope. OBJECTIVE: VITAL SIGNS: Temperature 36.2, pulse 58, respirations 18 and blood pressure 100/52. GENERAL: He is awake and alert, sitting up in the bedside chair. HEAD AND NECK: Unremarkable. LUNGS: He has inspiratory crackles in the bases. HEART: Regular and no murmur. ABDOMEN: Obese, soft and normoactive bowel sounds. EXTREMITIES: No edema. NEUROLOGIC: Global strength 4/5 throughout. He is alert, oriented to place, [address] [address] HISTORY AND PHYSICAL Name: VAZQUEZKANG Rosendo Room #: [facility] IN [facility]#: [id number] Admission: 09/17/17 Attend Phys: Antonio Heaton MD Discharge: Date of : 42 Report #: [id number] seems to recognize me. LABORATORY DATA: Chest x-ray was read as unremarkable. White count is 13. ASSESSMENT: 1. Community-acquired pneumonia. 2. Chronic obstructive pulmonary disease exacerbation due to the above. 3. Obstructive sleep apnea. 4. Diabetes type 2. 5. Chronic congestive heart failure. PLAN: Continue empiric antibiotics with Rocephin and pulmonary treatments, usual home medications and Lovenox for DVT prophylaxis. <ELECTRONICALLY SIGNED> By: Antonio Heaton MD 09/18/17 1628 0832 1012 Antonio Heaton MD /alisia
--- NOTE | ~2017-09-17 | D ---
[facility] [place] [address] DISCHARGE SUMMARY Name: VAZQUEZKANG Rosendo Room #: 402-P [facility] IN .R.#: [id number] Admission: 09/17/17 Attend Phys: Antonio Heaton MD Discharge: 09/20/17 Date of : 41 Report #: [id number] THIS REPORT FOR: //name// CC: Ed Heaton DATE OF SERVICE: 09/20/2017 FINAL DIAGNOSES: 1. Community-acquired pneumonia. 2. Cardiomyopathy. 3. Diabetes type 2. HOSPITAL COURSE: The patient was admitted with shortness of breath. He was diagnosed and treated for community-acquired pneumonia. Pulmonary service saw him and added steroids. This caused significant hyperglycemia and therefore discontinued. His other home medications were continued. He made steady improvement during the course of his stay and was weaned off daytime oxygen. His cough improved significantly and followup chest x-rays were showing improvement in the basilar infiltrate. He had a plan for an outpatient abdominal ultrasound, which was obtained here and was fairly unremarkable. He continued CPAP use from home for his obstructive sleep apnea. PHYSICAL EXAMINATION: GENERAL: On the day of discharge, he was awake and alert. VITAL SIGNS: Stable. Normal room air sats. LUNGS: Clear with no wheezing. HEART: Had regular sounds. ABDOMEN: Soft, normoactive bowel sounds. EXTREMITIES: No edema. DISPOSITION: To be discharged to home with diabetic diet, activity as tolerated. Follow up with Dr. Deal in 2 weeks. Resume all usual medications plus Ceftin 500 mg b.i.d. for 6 more days and Ventolin inhaler as needed. <ELECTRONICALLY SIGNED> By: Antonio Heaton MD 09/21/17 1440 0819 1635 Antonio Heaton MD /nt
--- NOTE | ~2017-09-17 | EKG ---
[address] [place] [address] ELECTROCARDIOGRAM REPORT Name: KANG SHUKLA Room #: 402-P ADM IN M.R.#: [id number] Admission: 09/17/17 Attend Phys: Antonio Heaton MD Discharge: Date of : 42 Report #: [id number] THIS REPORT FOR: //name// [facility] ED Test Date: 2017-09-17 Test Time: 18:43:02 Pat Name: KANG SHUKLA Department: Room: [facility] Gender: M Copywriter: Andre DAVIDSON RN : 1940 Requested By: Jessica Davidson Order Number: [id number] MD: Perez France Measurements Intervals [place] Rate: 68 P: -20 MA: 245 QRS: 221 QRSD: 116 T: 71 QT: 572 QTc: 609 Interpretive Statements Sinus rhythm Prolonged MA interval Nonspecific intraventricular conduction delay Inferior infarct, old Compared to ECG 02/26/2017 13:08:13 No significant changes Electronically Signed On 09-18-2017 8:22:52 CDT by Perez France [email or web address] <ELECTRONICALLY SIGNED> By: Perez France MD, [facility] 09/18/17 0822 184 42 Perez France MD, [facility] /EPI
[~2017-09-17 17:54] MED LIST changes: +NORCO 5-325 TA1 EACH PO
[2017-09-17 18:06] VITALS: BP 103/63
[2017-09-17 18:36] LABS: HEMATOCRIT 35.8 % (42.0-52.0); HEMOGLOBIN 11.9 gm/dL (14.0-18.0); MCH 29.7 pg (26.0-34.0); MCHC 33.2 g/dL (28.0-37.0); MCV 89.4 fL (80.0-100.0); PLATELET COUNT 305 thou/uL (150-400); RDW 14.3 % (10.5-14.5); WBC 13.2 thou/uL (4.0-11.0)
[2017-09-17 18:45] LABS: ANION GAP 3 mmol/L (7-16); BUN 19 mg/dL (7-18); CALCIUM 9.4 mg/dL (8.5-10.1); CHLORIDE 98 mmol/L (98-107); CO2 33 mmol/L (21-32); CREATININE 1.2 mg/dL (0.7-1.3); GLUCOSE 210 mg/dL (74-106); POTASSIUM 4.3 mmol/L (3.5-5.1); SODIUM 134 mmol/L (136-145)
[2017-09-17 18:54] LABS: TROPONIN-I < 0.04 ng/mL (<0.06)
[2017-09-17 18:55] LABS: ABSOLUTE NEUTROPHILS 9.6 thou/uL (1.4-8.2); METAMYELOCYTES 3 %
[2017-09-17 18:56] LABS: ANISOCYTOSIS 1+; BURR CELLS OCCASIONAL
[2017-09-17 20:17] VITALS: BP 85/49
[2017-09-17 21:07] VITALS: BP 103/51
[2017-09-18 04:00] VITALS: BP 120/80
[2017-09-18 07:08] VITALS: BP 100/52
[2017-09-18] MEDS ORDERED: CORLANOR5 MG PO (09:37)
[2017-09-18 20:00] VITALS: BP 106/52
[2017-09-19 04:00] VITALS: BP 105/66
[2017-09-19 06:20] LABS: HEMATOCRIT 34.7 % (42.0-52.0); HEMOGLOBIN 11.5 gm/dL (14.0-18.0); MCH 29.8 pg (26.0-34.0); MCHC 33.1 g/dL (28.0-37.0); MCV 89.9 fL (80.0-100.0); RBC 3.86 mil/uL (4.50-6.00); RDW 14.1 % (10.5-14.5); WBC 9.7 thou/uL (4.0-11.0)
[2017-09-19 06:39] LABS: CALCIUM 9.5 mg/dL (8.5-10.1); CREATININE 1.2 mg/dL (0.7-1.3)
[2017-09-19 08:05] VITALS: BP 107/59
[2017-09-19 11:45] VITALS: BP 100/56
[2017-09-19 16:00] VITALS: BP 119/67
[2017-09-19 19:08] VITALS: BP 103/57
[2017-09-20 05:16] VITALS: BP 113/69
[2017-09-20] MEDS ORDERED: VENTOLIN HFA 1818 GM INH (07:50)
[2017-09-20] MEDS ORDERED: CEFUROXIME500 MG PO (07:50)
[2017-09-20 08:32] VITALS: BP 105/46
[2017-09-20 09:56] VITALS: BP 105/46
== END 2017-09-20 11:20 | disposition home or self-care (01) | DRG 193 ==
LOC: ER 17:54 → 4N 19:36 → EROBS 19:36 → ER 19:54 → 4N 19:54 → EROBS 19:54 → 4N 20:18 → EROBS 20:20 → 4N 20:20
PROVIDERS: Internal Medicine Pulmonary Disease; Physician Assistant
DX: J18.9 Pneumonia, unspecified organism (principal); J96.01 Acute respiratory failure with hypoxia; J44.1 Chronic obstructive pulmonary disease with (acute) exacerbation; I42.9 Cardiomyopathy, unspecified; J44.0 Chronic obstructive pulmonary disease with (acute) lower respiratory infection; E11.9 Type 2 diabetes mellitus without complications; I50.9 Heart failure, unspecified; I11.0 Hypertensive heart disease with heart failure; G47.33 Obstructive sleep apnea (adult) (pediatric); E66.9 Obesity, unspecified; Z68.33 Body mass index [BMI] 33.0-33.9, adult; Z87.891 Personal history of nicotine dependence; Z79.82 Long term (current) use of aspirin; Z79.899 Other long term (current) drug therapy; Z90.49 Acquired absence of other specified parts of digestive tract
CPT/HCPCS: 10790

== ENCOUNTER 2017-10-15 16:19 | Emergency (ER) | payer OTHER ==
[~2017-10-15] VITALS: Ht 172.7 cm; Wt 91.2 kg
[~2017-10-15 16:19] MED LIST changes: +CEFUROXIME500 MG PO; +CORLANOR5 MG PO; +VENTOLIN HFA 1818 GM INH
[2017-10-15 17:01] LABS: BE(vivo) 2.1 mmol/L (-2 to +3); PCO2 VENOUS 38.2 mmHg (41.0-51.0); PO2 VENOUS 47.7 mmHg (35.0-45.0)
[2017-10-15 17:02] LABS: HEMATOCRIT 37.9 % (42.0-52.0); HEMOGLOBIN 12.9 gm/dL (14.0-18.0); MCH 30.7 pg (26.0-34.0); MCV 90.5 fL (80.0-100.0); PLATELET COUNT 265 thou/uL (150-400); RBC 4.19 mil/uL (4.50-6.00); RDW 14.2 % (10.5-14.5); WBC 7.3 thou/uL (4.0-11.0)
[2017-10-15 17:10] LABS: CALCIUM 9.5 mg/dL (8.5-10.1); CREATININE 1.6 mg/dL (0.7-1.3); POTASSIUM 4.2 mmol/L (3.5-5.1)
[2017-10-15 17:15] LABS: ALBUMIN 3.2 g/dL (3.4-5.0); TOTAL BILIRUBIN 0.4 mg/dL (<0.1-1.0)
[2017-10-15 17:21] LABS: ABSOLUTE NEUTROPHILS 4.2 thou/uL (1.4-8.2); ANISOCYTOSIS 1+
[2017-10-15 17:22] LABS: POLYCHROMASIA OCCASIONAL
== END 2017-10-15 19:27 | disposition home or self-care (01) ==
LOC: ER 16:19
PROVIDERS: Emergency Medicine
DX: E11.65 Type 2 diabetes mellitus with hyperglycemia (principal); J44.9 Chronic obstructive pulmonary disease, unspecified; I11.0 Hypertensive heart disease with heart failure; I50.9 Heart failure, unspecified; Z87.891 Personal history of nicotine dependence

== ENCOUNTER 2018-06-29 06:52 | Emergency (ER) | payer OTHER ==
[~2018-06-29] VITALS: Ht 170.2 cm; Wt 90.7 kg
[2018-06-29 07:21] LABS: HEMATOCRIT 38.1 % (42.0-52.0); HEMOGLOBIN 12.8 gm/dL (14.0-18.0); MCH 30.2 pg (26.0-34.0); MCHC 33.7 g/dL (28.0-37.0); MCV 89.8 fL (80.0-100.0); PLATELET COUNT 226 thou/uL (150-400); RBC 4.24 mil/uL (4.50-6.00); RDW 13.2 % (10.5-14.5); WBC 11.9 thou/uL (4.0-11.0)
[2018-06-29 07:30] LABS: URINE COLOR YELLOW
[2018-06-29 07:31] LABS: URINE BILIRUBIN NEGATIVE (Negative); URINE BLOOD NEGATIVE (Negative); URINE CLARITY CLEAR; URINE GLUCOSE-RANDOM* NEGATIVE (Negative); URINE KETONES NEGATIVE (Negative); URINE LEUKOCYTES-REFLEX NEGATIVE (Negative); URINE NITRITE-REFLEX NEGATIVE (Negative); URINE PROTEIN (DIPSTICK) NEGATIVE (Negative); URINE UROBILINOGEN 0.2 E.U./dl (0.2-1.0)
[2018-06-29 07:32] LABS: ANION GAP 6 mmol/L (7-16); BUN 30 mg/dL (7-18); CALCIUM 8.8 mg/dL (8.5-10.1); CHLORIDE 99 mmol/L (98-107); CO2 31 mmol/L (21-32); CREATININE 1.4 mg/dL (0.7-1.3); GLUCOSE 135 mg/dL (74-106); POTASSIUM 3.9 mmol/L (3.5-5.1); SODIUM 136 mmol/L (136-145)
[2018-06-29 07:41] LABS: ALBUMIN 2.8 g/dL (3.4-5.0); SGOT 27 U/L (15-37); SGPT 30 U/L (30-65); TOTAL BILIRUBIN 0.5 mg/dL (<0.1-1.0); TOTAL PROTEIN 8.2 g/dL (6.4-8.2); TROPONIN-I <0.06 ng/mL (<0.06)
[2018-06-29 08:10] LABS: ABSOLUTE NEUTROPHILS 8.2 thou/uL (1.4-8.2); NUCLEATED RBCS 1 /100WBC
[2018-06-29 08:11] LABS: ANISOCYTOSIS SLIGHT
[2018-06-29 11:15] VITALS: BP 95/47
--- NOTE | 2018-06-29 16:06 | EKG ---
[place] [address] [place] [address] ELECTROCARDIOGRAM REPORT Name: VAZQUEZKANG A [facility] [id number] Admission: 06/29/18 Attend Phys: Discharge: 06/29/18 Date of : 42 Report #: [id number] THIS REPORT FOR: //name// [facility] ED Test Date: 2018-06-29 Test Time: 07:22:04 Pat Name: KANG SHUKLA Department: Room: Gender: M Presser First: cw : 1940 Requested By: Rama Clay Order Number: [id number] MD: Perez France Measurements Intervals [place] Rate: 63 P: -8 MI: 239 QRS: 162 QRSD: 108 T: 58 QT: 562 QTc: 576 Interpretive Statements Sinus rhythm Prolonged MI interval Inferior infarct, old Poor R wave progression Prolonged QT interval Compared to ECG 09/17/2017 18:43:02 Prolonged QT interval now present Electronically Signed On 06-29-2018 16:06:25 [employer] by Perez France [email or web address] <ELECTRONICALLY SIGNED> By: Perez France MD, [facility] 06/29/18 1606 1 1 Perez France MD, [facility] /EPI
== END 2018-06-29 11:15 | disposition home or self-care (01) ==
LOC: ER 06:52
PROVIDERS: Student in an Organized Health Care Education/Training Program
DX: R53.1 Weakness (principal); I11.0 Hypertensive heart disease with heart failure; I50.9 Heart failure, unspecified; J44.9 Chronic obstructive pulmonary disease, unspecified; E11.9 Type 2 diabetes mellitus without complications; Z87.891 Personal history of nicotine dependence

== ENCOUNTER → 2018-07-29 | Outpatient (CLI) | payer OTHER | LOC: RAD 11:35 | DX: E11.9 Type 2 diabetes mellitus without complications (principal) ==

== ENCOUNTER → 2019-08-25 | Outpatient (CLI) | payer OTHER | LOC: SJCVC 13:46 | DX: Z45.02 Encounter for adjustment and management of automatic implantable cardiac defibrillator (principal); I25.10 Atherosclerotic heart disease of native coronary artery without angina pectoris; I11.0 Hypertensive heart disease with heart failure; I50.23 Acute on chronic systolic (congestive) heart failure; I25.5 Ischemic cardiomyopathy; G47.33 Obstructive sleep apnea (adult) (pediatric); E78.00 Pure hypercholesterolemia, unspecified; N40.0 Benign prostatic hyperplasia without lower urinary tract symptoms; E11.9 Type 2 diabetes mellitus without complications; E78.5 Hyperlipidemia, unspecified; Z87.891 Personal history of nicotine dependence; Z79.899 Other long term (current) drug therapy; Z79.82 Long term (current) use of aspirin ==

== ENCOUNTER → 2019-10-11 | Outpatient (CLI) | payer OTHER | LOC: SJCVCIMAG 10-08 12:31 | DX: Z45.02 Encounter for adjustment and management of automatic implantable cardiac defibrillator (principal); I45.10 Unspecified right bundle-branch block; I44.0 Atrioventricular block, first degree; R94.31 Abnormal electrocardiogram [ECG] [EKG]; I25.10 Atherosclerotic heart disease of native coronary artery without angina pectoris; I42.9 Cardiomyopathy, unspecified; I11.0 Hypertensive heart disease with heart failure; I50.23 Acute on chronic systolic (congestive) heart failure; G47.33 Obstructive sleep apnea (adult) (pediatric); I25.5 Ischemic cardiomyopathy; E78.00 Pure hypercholesterolemia, unspecified; E11.9 Type 2 diabetes mellitus without complications; G62.9 Polyneuropathy, unspecified; Z79.82 Long term (current) use of aspirin; Z79.899 Other long term (current) drug therapy; Z87.891 Personal history of nicotine dependence; Z95.810 Presence of automatic (implantable) cardiac defibrillator ==

== ENCOUNTER → 2019-11-08 | Day surgery (SDC) | payer OTHER ==
[~2019-11-08] VITALS: Ht 170.2 cm; Wt 80.3 kg
[~2019-11-08] MED LIST changes: +ASPIRIN EC81 M1 PO; +CLARITIN10 M3 PO; +JANUVIA 50 MG T50 M1 PO; +KEFLEX500 M1 PO; +LIPITOR10 MG PO; +NEURONTIN100 MG PO; +NORCO 5-325 TA1 EAC2 PO; +PACERONE200 MG PO; +SENNA-DOCUSATE1 EAC1 PO; +SPIRONOLACTONE25 MG PO; +TORSEMIDE20 MG PO; +TYLENOL325 MG PO
[2019-11-08 09:14] LABS: HEMATOCRIT 37.5 % (42.0-52.0); HEMOGLOBIN 12.5 gm/dL (14.0-18.0)
[2019-11-08 09:22] LABS: CALCIUM 8.3 mg/dL (8.5-10.1); CREATININE 1.1 mg/dL (0.7-1.3); POTASSIUM 3.8 mmol/L (3.5-5.1)
[2019-11-08 09:26] VITALS: BP 100/59
[2019-11-08 11:37] VITALS: BP 100/59
--- NOTE | 2019-11-09 15:09 | PATH ---
[facility] [address] [place] [address] PATHOLOGY RPT PROCEDURE Name: KANG AQUINO Room #: [facility]#: [id number] Admission: 11/08/19 Date of : 42 Discharge: Report #: [id number] Path Case #: [id number] [facility] Accession Number: [id number] . 01 Material submitted: . scalp - SCALP LESION STITCH AND ANTERIOR LATERAL 13:00 POSTION . 01 Clinical history: . Suspected skin cancer . 02 Frozen section diagnosis: . FROZEN SECTION DIAGNOSIS: (Farrah Constantino M.D.) . FSA. Skin, cross section 3:00 to 9:00: - SQUAMOUS CELL CARCINOMA, DEEPLY INVASIVE CLOSE TO THE DEEP MARGIN BUT APPEARS FREE. LATERAL MARGIN ALSO APPEAR FREE. . These findings were discussed with Dr. Dimitrios Hernandez and a written report was placed in the patient's chart. . Frozen section performed at [facility], [address] , [place] [address]. . FROZEN SECTION GROSS DESCRIPTION: Specimen received fresh labeled "Kang Aquino, Scalp lesion/skin cancer stitch at anterior lateral 13:00 position" consists of an ellipse of skin that measures 6.0 x 2.4 x 0.4 cm. A suture is identifying the 1:00 (13:00 margin). The specimen is inked as follows: 12-3:00 red, 3-6:00 yellow, 6-9:00 blue, 9-12:00 green and deep black. An ulcerated lesion is present measuring approximately 1.0 cm. The closest margin as discussed with Dr. Dimitrios Hernandez is cross section 3:00 to 9:00, the tips 12:00 to 6:00 are far from the lesion. So a cross section frozen section is done 3:00 to 9:00 and submitted in cassette labeled A1 and tips 12:00 to 6:00 submitted in cassette A2. ([facility]/; 11/08/2019) . UAS/LBQ . 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 (SHA:pit 11/09/2019) [facility] 11/09/2019 1131 Local . 03 Electronically signed: . [facility] [address] [place] [address] PATHOLOGY RPT PROCEDURE Name: KANG AQUINO Room #: REG [facility] [place].#: [id number] Admission: 11/08/19 Date of : 42 Discharge: Report #: [id number] Path Case #: [id number] Low Constantino MD, Pathologist NPI- [id number] . 01 Gross description: . SEE FROZEN SECTION GROSS DESCRIPTION. . Remainder of the lesion is submitted in A3-A4. (SDY; 11/08/2019) SYU/SYU 11/09/2019 1055 Local . 03 Pathologist provided ICD-10: C44.42 . 03 CPT . 398797, 954497 Specimen Comment: A courtesy copy of this report has been sent to [phone] Specimen Comment: Report sent to Performed at: 01 [facility] [address] [id number] MD Ari Caldwell MD Phone: [phone] Performed at: [address] [facility] [address] [id number] MD Rosario Blair MD Phone: [phone] Performed at: 03 [facility] [address] [id number] MD Clarence Anderson MD Phone: [phone]
--- NOTE | 2019-11-23 12:12 | O ---
[facility] [place] [address] OPERATIVE REPORT Name: KANG SHUKLA Room #: [facility].#: [id number] Admission: 11/08/19 Attend Phys: Dimitrios Hernandez MD Discharge: Date of : 42 Report #: [id number] THIS REPORT FOR: cc: Ed Deal MD, Christopher B. MD Chu,Dimitrios Alejandro MD ~ CC: Mateusz Hernandez DATE OF SERVICE: 11/08/2019 PREOPERATIVE DIAGNOSIS: Right scalp lesion consistent with squamous cell, measuring over 2 cm. POSTOPERATIVE DIAGNOSIS: Right scalp lesion consistent with squamous cell, measuring over 2 cm. PROCEDURE PERFORMED: Excision of right squamous cell cancer from the scalp with primary closure requiring tissue transfer. ANESTHESIA: IV sedation, local 0.25% Marcaine. COMPLICATIONS: None. BLOOD LOSS: 100 mL. PROCEDURE NOTE: With the patient under IV sedation, the scalp was prepped and draped in sterile fashion. The patient received preoperative IV antibiotic. Timeout was performed. Local anesthetic 0.25% Marcaine was injected. Total of over 20 mL of Marcaine was injected. The ellipse was drawn around the cancer getting to the normal margins. The ellipse is 8 cm in length and 2.6 cm in width. The full thickness skin was excised. Sharp dissection was carried down to the galea posteriorly. Specimen was marked with a suture on the anterior lateral margin at 1 o'clock. Specimen was given to the pathologist. Hemostasis was obtained with cautery. The frozen section came back with a diagnosis of squamous cell and margins were free. The lesion did travel deep, posterior margin, not able to be determined. I excised the full thickness of the skin and down deep to the galea, I do not think it requires any further dissection. The edges of the skin flap was then elevated for distance about at least 3 cm in each direction towards the vertex of the skull and then down towards the side of the right skull laterally. Once this was loosened, it felt like it could come together. A 3-0 nylon was then used in interrupted fashion. Most of it was horizontal mattress fashion, a few interrupted sutures. The skin did come [facility] [address] [place] [address] OPERATIVE REPORT Name: KANG SHUKLA Rosendo Room #: [facility].#: [id number] Admission: 11/08/19 Attend Phys: Dimitrios Hernandez MD Discharge: Date of : 42 Report #: [id number] together well. Antibiotic ointment, 4 x 4, OpSite used for dressing. The patient tolerated the procedure well and was taken to recovery room. <ELECTRONICALLY SIGNED> By: Dimitrios Hernandez MD 11/23/19 1212 1133 [id number] Dimitrios Hernandez MD /nt
== END | disposition home or self-care (01) ==
LOC: OR 08:05
PROVIDERS: ATTEND Surgery
DX: C44.42 Squamous cell carcinoma of skin of scalp and neck (principal); I11.0 Hypertensive heart disease with heart failure; I50.9 Heart failure, unspecified; J43.9 Emphysema, unspecified; G62.9 Polyneuropathy, unspecified; G47.30 Sleep apnea, unspecified; F03.90 Unspecified dementia, unspecified severity, without behavioral disturbance, psychotic disturbance, mood disturbance, and anxiety; E78.00 Pure hypercholesterolemia, unspecified; E11.9 Type 2 diabetes mellitus without complications; K21.9 Gastro-esophageal reflux disease without esophagitis; M19.90 Unspecified osteoarthritis, unspecified site; Z98.890 Other specified postprocedural states; Z79.899 Other long term (current) drug therapy; Z11.59 Encounter for screening for other viral diseases; Z98.41 Cataract extraction status, right eye; Z95.810 Presence of automatic (implantable) cardiac defibrillator; Z98.42 Cataract extraction status, left eye
CPT/HCPCS: 50010; 50101; 50386; 50417; 56527; 70005

== ENCOUNTER 2019-11-17 11:49 | Emergency (ER) | payer OTHER ==
[~2019-11-17] VITALS: Ht 170.2 cm; Wt 81.7 kg
[~2019-11-17 11:49] MED LIST changes: -CLARITIN10 M3 PO; -KEFLEX500 M1 PO; -NORCO 5-325 TA1 EAC2 PO; -SENNA-DOCUSATE1 EAC1 PO
[2019-11-17 12:51] LABS: HEMATOCRIT 37.9 % (42.0-52.0); HEMOGLOBIN 12.8 gm/dL (14.0-18.0); MCH 31.8 pg (26.0-34.0); MCHC 33.7 g/dL (28.0-37.0); MCV 94.5 fL (80.0-100.0); RBC 4.01 mil/uL (4.50-6.00); RDW 13.7 % (10.5-14.5); WBC 5.7 thou/uL (4.0-11.0)
[2019-11-17 12:56] LABS: ANION GAP 4 mmol/L (7-16); BUN 23 mg/dL (7-18); CALCIUM 8.3 mg/dL (8.5-10.1); CHLORIDE 97 mmol/L (98-107); CO2 30 mmol/L (21-32); CREATININE 1.2 mg/dL (0.7-1.3); POTASSIUM 3.9 mmol/L (3.5-5.1); SODIUM 131 mmol/L (136-145)
[2019-11-17 12:58] LABS: GLUCOSE 167 mg/dL (74-106)
[2019-11-17 13:04] LABS: TROPONIN-I <0.06 ng/mL (<0.06)
[2019-11-17] MEDS ORDERED: CLARITIN10 M3 PO (13:22)
[2019-11-17 14:16] LABS: URINE BILIRUBIN NEGATIVE (Negative); URINE BLOOD NEGATIVE (Negative); URINE CLARITY CLEAR; URINE COLOR YELLOW; URINE GLUCOSE-RANDOM* NEGATIVE (Negative); URINE KETONES NEGATIVE (Negative); URINE LEUKOCYTES-REFLEX NEGATIVE (Negative); URINE NITRITE-REFLEX NEGATIVE (Negative); URINE PROTEIN (DIPSTICK) NEGATIVE (Negative); URINE UROBILINOGEN 0.2 E.U./dl (0.2-1.0)
[2019-11-17] MEDS ORDERED: SENNA-DOCUSATE1 EAC1 PO (16:49)
[2019-11-17] MEDS ORDERED: KEFLEX500 M1 PO (16:49)
[2019-11-17] MEDS ORDERED: NORCO 5-325 TA1 EAC2 PO (16:49)
[2019-11-17 17:05] VITALS: BP 108/65
--- NOTE | 2019-11-18 07:58 | EKG ---
[facility] [place] [address] ELECTROCARDIOGRAM REPORT Name: KANG SHUKLA Room #: DEP [facility]#: [id number] Admission: 11/17/19 Attend Phys: Discharge: 11/17/19 Date of : 41 Report #: [id number] THIS REPORT FOR: cc: Ed Deal MD, Christopher B. MD Couchonnal, Luis F. MD ~ THIS REPORT FOR: //name// [facility] ED Test Date: 2019-11-17 Test Time: 12:08:08 Pat Name: KANG SHUKLA Department: Room: Gender: Mental Health Case Manager: [facility] : 1940 Requested By: Amadeo Crowe Order Number: [id number] MD: Sky Jarvis Measurements Intervals [place] Rate: 70 P: -12 NE: 261 QRS: 3 QRSD: 114 T: 52 QT: 460 QTc: 497 Interpretive Statements Sinus rhythm Prolonged NE interval IRBBB and LPFB Inferior infarct, old Compared to ECG 06/29/2018 07:22:04 Electronically Signed On 11-18-2019 7:57:43 CDT by Sky Jarvis [email or web address] <ELECTRONICALLY SIGNED> By: Sky Jarvis MD 11/18/19 0757 1208 1208 Sky Jarvis MD /EPI
== END 2019-11-17 17:05 | disposition home or self-care (01) ==
LOC: ER 11:49
PROVIDERS: Emergency Medicine
DX: R53.81 Other malaise (principal); E11.9 Type 2 diabetes mellitus without complications; J44.9 Chronic obstructive pulmonary disease, unspecified; I11.0 Hypertensive heart disease with heart failure; I50.9 Heart failure, unspecified; M19.90 Unspecified osteoarthritis, unspecified site; K21.9 Gastro-esophageal reflux disease without esophagitis; E78.00 Pure hypercholesterolemia, unspecified; Z79.82 Long term (current) use of aspirin; Z79.899 Other long term (current) drug therapy; Z90.89 Acquired absence of other organs

== ENCOUNTER → 2019-12-07 | Outpatient (CLI) | payer OTHER ==
[~2019-12-07] MED LIST changes: +CLARITIN10 M3 PO; +KEFLEX500 M1 PO; +NORCO 5-325 TA1 EAC2 PO; +SENNA-DOCUSATE1 EAC1 PO
== END ==
LOC: HYPER 10:33
PROVIDERS: ATTEND Emergency Medicine Emergency Medical Services
DX: T81.31XA Disruption of external operation (surgical) wound, not elsewhere classified, initial encounter (principal); E11.622 Type 2 diabetes mellitus with other skin ulcer; L98.492 Non-pressure chronic ulcer of skin of other sites with fat layer exposed; C44.42 Squamous cell carcinoma of skin of scalp and neck; E11.43 Type 2 diabetes mellitus with diabetic autonomic (poly)neuropathy; E78.5 Hyperlipidemia, unspecified; G47.33 Obstructive sleep apnea (adult) (pediatric); I11.0 Hypertensive heart disease with heart failure; I50.23 Acute on chronic systolic (congestive) heart failure; I25.10 Atherosclerotic heart disease of native coronary artery without angina pectoris; I25.5 Ischemic cardiomyopathy; J42 Unspecified chronic bronchitis; F41.9 Anxiety disorder, unspecified; F32.9 Major depressive disorder, single episode, unspecified; Z95.810 Presence of automatic (implantable) cardiac defibrillator; Z81.2 Family history of tobacco abuse and dependence; Z79.82 Long term (current) use of aspirin; Y92.238 Other place in hospital as the place of occurrence of the external cause; Y83.8 Other surgical procedures as the cause of abnormal reaction of the patient, or of later complication, without mention of misadventure at the time of the procedure

== ENCOUNTER → 2019-12-19 | Outpatient (CLI) | payer OTHER | LOC: HYPER 12:00 | PROVIDERS: ATTEND Emergency Medicine | DX: T81.31XD Disruption of external operation (surgical) wound, not elsewhere classified, subsequent encounter (principal); L98.492 Non-pressure chronic ulcer of skin of other sites with fat layer exposed; C44.42 Squamous cell carcinoma of skin of scalp and neck; E11.43 Type 2 diabetes mellitus with diabetic autonomic (poly)neuropathy; E78.5 Hyperlipidemia, unspecified; G47.33 Obstructive sleep apnea (adult) (pediatric); I50.23 Acute on chronic systolic (congestive) heart failure; I25.10 Atherosclerotic heart disease of native coronary artery without angina pectoris; I25.5 Ischemic cardiomyopathy; R54 Age-related physical debility; F41.9 Anxiety disorder, unspecified; F32.9 Major depressive disorder, single episode, unspecified; Z95.810 Presence of automatic (implantable) cardiac defibrillator; Z81.2 Family history of tobacco abuse and dependence; Y83.8 Other surgical procedures as the cause of abnormal reaction of the patient, or of later complication, without mention of misadventure at the time of the procedure ==

== ENCOUNTER → 2020-01-02 | Outpatient (CLI) | payer OTHER | LOC: HYPER 14:02 | PROVIDERS: ATTEND Emergency Medicine | DX: T81.31XD Disruption of external operation (surgical) wound, not elsewhere classified, subsequent encounter (principal); E11.622 Type 2 diabetes mellitus with other skin ulcer; L98.492 Non-pressure chronic ulcer of skin of other sites with fat layer exposed; C44.42 Squamous cell carcinoma of skin of scalp and neck; E11.43 Type 2 diabetes mellitus with diabetic autonomic (poly)neuropathy; I50.23 Acute on chronic systolic (congestive) heart failure; R54 Age-related physical debility; G47.33 Obstructive sleep apnea (adult) (pediatric); I25.10 Atherosclerotic heart disease of native coronary artery without angina pectoris; E78.5 Hyperlipidemia, unspecified; F32.9 Major depressive disorder, single episode, unspecified; F41.9 Anxiety disorder, unspecified; Z95.810 Presence of automatic (implantable) cardiac defibrillator; Z81.2 Family history of tobacco abuse and dependence; Y83.8 Other surgical procedures as the cause of abnormal reaction of the patient, or of later complication, without mention of misadventure at the time of the procedure ==

== ENCOUNTER → 2020-01-16 | Outpatient (CLI) | payer OTHER | LOC: HYPER 10:40 | PROVIDERS: ATTEND Emergency Medicine Emergency Medical Services | DX: T81.31XD Disruption of external operation (surgical) wound, not elsewhere classified, subsequent encounter (principal); E11.622 Type 2 diabetes mellitus with other skin ulcer; L98.492 Non-pressure chronic ulcer of skin of other sites with fat layer exposed; C44.42 Squamous cell carcinoma of skin of scalp and neck; E11.43 Type 2 diabetes mellitus with diabetic autonomic (poly)neuropathy; R54 Age-related physical debility; I50.23 Acute on chronic systolic (congestive) heart failure; I25.10 Atherosclerotic heart disease of native coronary artery without angina pectoris; E78.5 Hyperlipidemia, unspecified; G47.33 Obstructive sleep apnea (adult) (pediatric); F32.9 Major depressive disorder, single episode, unspecified; F41.9 Anxiety disorder, unspecified; Z79.82 Long term (current) use of aspirin; Z95.810 Presence of automatic (implantable) cardiac defibrillator; Z81.2 Family history of tobacco abuse and dependence; Y83.8 Other surgical procedures as the cause of abnormal reaction of the patient, or of later complication, without mention of misadventure at the time of the procedure ==

== ENCOUNTER → 2020-01-30 | Outpatient (CLI) | payer OTHER | LOC: HYPER 13:43 | PROVIDERS: ATTEND Emergency Medicine | DX: T81.31XD Disruption of external operation (surgical) wound, not elsewhere classified, subsequent encounter (principal); E11.622 Type 2 diabetes mellitus with other skin ulcer; L98.492 Non-pressure chronic ulcer of skin of other sites with fat layer exposed; E11.40 Type 2 diabetes mellitus with diabetic neuropathy, unspecified; C44.42 Squamous cell carcinoma of skin of scalp and neck; E11.43 Type 2 diabetes mellitus with diabetic autonomic (poly)neuropathy; R54 Age-related physical debility; I50.23 Acute on chronic systolic (congestive) heart failure; I25.10 Atherosclerotic heart disease of native coronary artery without angina pectoris; E78.5 Hyperlipidemia, unspecified; G47.33 Obstructive sleep apnea (adult) (pediatric); F41.9 Anxiety disorder, unspecified; F32.9 Major depressive disorder, single episode, unspecified; Z79.82 Long term (current) use of aspirin; Z81.2 Family history of tobacco abuse and dependence; Z95.810 Presence of automatic (implantable) cardiac defibrillator; Z87.891 Personal history of nicotine dependence; Y83.8 Other surgical procedures as the cause of abnormal reaction of the patient, or of later complication, without mention of misadventure at the time of the procedure ==

== ENCOUNTER 2020-02-08 17:16 | Emergency (ER) | payer OTHER ==
[~2020-02-08] VITALS: Ht 170.2 cm; Wt 77.1 kg
[2020-02-08 17:58] LABS: HEMATOCRIT 39.5 % (42.0-52.0); HEMOGLOBIN 13.5 gm/dL (14.0-18.0); MCH 32.1 pg (26.0-34.0); MCHC 34.1 g/dL (28.0-37.0); MCV 94.1 fL (80.0-100.0); PLATELET COUNT 262 thou/uL (150-400); RDW 13.6 % (10.5-14.5); WBC 8.2 thou/uL (4.0-11.0)
[2020-02-08 18:05] LABS: ANION GAP 8 mmol/L (7-16); BUN 26 mg/dL (7-18); CALCIUM 8.7 mg/dL (8.5-10.1); CHLORIDE 97 mmol/L (98-107); CO2 30 mmol/L (21-32); CREATININE 0.8 mg/dL (0.7-1.3); GLUCOSE 121 mg/dL (74-106); POTASSIUM 4.4 mmol/L (3.5-5.1); SODIUM 135 mmol/L (136-145)
[2020-02-08 18:15] LABS: ALBUMIN 2.8 g/dL (3.4-5.0); SGOT 37 U/L (15-37); SGPT 38 U/L (30-65); TOTAL BILIRUBIN 0.6 mg/dL (0.2-1.0); TOTAL PROTEIN 8.1 g/dL (6.4-8.2); TROPONIN-I <0.06 ng/mL (<0.06)
[2020-02-08 18:18] LABS: ABSOLUTE NEUTROPHILS 5.5 thou/uL (1.4-8.2)
[2020-02-08] MEDS ORDERED: ISOSORBIDE DINI30 MG PO (18:32)
[2020-02-08] MEDS ORDERED: NASACORT10.8 ML NARES (18:35)
[2020-02-08 21:05] LABS: URINE BILIRUBIN NEGATIVE (Negative); URINE BLOOD NEGATIVE (Negative); URINE CLARITY CLEAR; URINE COLOR YELLOW; URINE GLUCOSE-RANDOM* NEGATIVE (Negative); URINE KETONES NEGATIVE (Negative); URINE LEUKOCYTES-REFLEX NEGATIVE (Negative); URINE NITRITE-REFLEX NEGATIVE (Negative); URINE PROTEIN (DIPSTICK) NEGATIVE (Negative); URINE UROBILINOGEN 0.2 E.U./dl (0.2-1.0)
[2020-02-08 22:53] VITALS: BP 95/53
--- NOTE | 2020-02-09 07:35 | EKG ---
[facility] [place] [address] ELECTROCARDIOGRAM REPORT Name: KANG SHUKLA Room #: DEP [facility]#: [id number] Admission: 02/08/20 Attend Phys: Discharge: 02/08/20 Date of : 42 Report #: [id number] THIS REPORT FOR: cc: Ed Deal MD, Christopher B. MD Lundgren,Perez Araujo MD [facility] ~ THIS REPORT FOR: //name// [facility] ED Test Date: 2020-02-08 Test Time: 17:27:07 Pat Name: KANG SHUKLA Department: Room: Gender: Pre Planning Advisor: : 1940 Requested By: Hung Jha Order Number: [id number] MD: Perez France Measurements Intervals [place] Rate: 66 P: 19 OK: 238 QRS: 170 QRSD: 108 T: 1 QT: 462 QTc: 485 Interpretive Statements Sinus rhythm ventricular premature complexes Prolonged OK interval Inferior infarct, old Poor R wave progression Compared to ECG 11/17/2019 12:08:08 No significant change was found Electronically Signed On 02-09-2020 7:34:58 CDT by Perez France [email or web address] <ELECTRONICALLY SIGNED> By: Perez France MD, [facility] 02/09/20 0734 1727 1727 Perez France MD, [facility] /EPI
== END 2020-02-08 22:53 | disposition home or self-care (01) ==
LOC: ER 17:16
PROVIDERS: Emergency Medicine
DX: S00.03XA Contusion of scalp, initial encounter (principal); I11.0 Hypertensive heart disease with heart failure; I50.9 Heart failure, unspecified; J44.9 Chronic obstructive pulmonary disease, unspecified; E11.9 Type 2 diabetes mellitus without complications; K21.9 Gastro-esophageal reflux disease without esophagitis; E78.5 Hyperlipidemia, unspecified; Z79.82 Long term (current) use of aspirin; Z79.899 Other long term (current) drug therapy; W01.0XXA Fall on same level from slipping, tripping and stumbling without subsequent striking against object, initial encounter; Y93.89 Activity, other specified; Y92.89 Other specified places as the place of occurrence of the external cause; Y99.8 Other external cause status

== ENCOUNTER → 2020-02-15 | Outpatient (CLI) | payer OTHER ==
[~2020-02-15] MED LIST changes: +ISOSORBIDE DINI30 MG PO; +NASACORT10.8 ML NARES
== END ==
LOC: HYPER 13:57
PROVIDERS: ATTEND Emergency Medicine
DX: T81.31XD Disruption of external operation (surgical) wound, not elsewhere classified, subsequent encounter (principal); E11.622 Type 2 diabetes mellitus with other skin ulcer; L98.492 Non-pressure chronic ulcer of skin of other sites with fat layer exposed; C44.42 Squamous cell carcinoma of skin of scalp and neck; E11.43 Type 2 diabetes mellitus with diabetic autonomic (poly)neuropathy; E78.5 Hyperlipidemia, unspecified; R54 Age-related physical debility; G47.33 Obstructive sleep apnea (adult) (pediatric); I50.23 Acute on chronic systolic (congestive) heart failure; I25.5 Ischemic cardiomyopathy; I25.10 Atherosclerotic heart disease of native coronary artery without angina pectoris; J42 Unspecified chronic bronchitis; F41.9 Anxiety disorder, unspecified; F32.9 Major depressive disorder, single episode, unspecified; Z81.2 Family history of tobacco abuse and dependence; Z95.810 Presence of automatic (implantable) cardiac defibrillator; Y83.8 Other surgical procedures as the cause of abnormal reaction of the patient, or of later complication, without mention of misadventure at the time of the procedure

== ENCOUNTER 2020-06-07 15:04 | Inpatient (IN) | payer OTHER ==
[~2020-06-07] VITALS: Ht 170.2 cm; Wt 76.8 kg
[2020-06-07 10:08] VITALS: BP 91/53
[2020-06-07 15:05] VITALS: BP 106/59
[2020-06-07 17:06] LABS: ABSOLUTE NEUTROPHILS 5.4 thou/uL (1.4-8.2); BASOPHILS 0.6 % (0.0-2.0); EOSINOPHILS 1.3 % (0.0-3.0); HEMATOCRIT 39.7 % (42.0-52.0); LYMPHOCYTES 15.1 % (24.0-44.0); MCH 30.9 pg (26.0-34.0); MCHC 32.7 g/dL (28.0-37.0); MCV 94.4 fL (80.0-100.0); MONOCYTES 14.9 % (1.0-8.0); PLATELET COUNT 280 thou/uL (150-400); POLYS 68.1 % (36.0-66.0); RBC 4.21 mil/uL (4.50-6.00); WBC 7.9 thou/uL (4.0-11.0)
[2020-06-07 17:15] LABS: ANION GAP 4 mmol/L (7-16); BUN 38 mg/dL (7-18); CALCIUM 8.8 mg/dL (8.5-10.1); CHLORIDE 96 mmol/L (98-107); CO2 29 mmol/L (21-32); CREATININE 1.1 mg/dL (0.7-1.3); GLUCOSE 154 mg/dL (74-106); POTASSIUM 4.3 mmol/L (3.5-5.1); SODIUM 129 mmol/L (136-145)
[2020-06-07 17:27] LABS: ALBUMIN 2.8 g/dL (3.4-5.0); MAGNESIUM 1.9 mg/dL (1.8-2.4); SGOT 51 U/L (15-37); SGPT 46 U/L (16-63); TOTAL BILIRUBIN 0.6 mg/dL (0.2-1.0); TOTAL PROTEIN 8.3 g/dL (6.4-8.2); TROPONIN-I <0.06 ng/mL (<0.06)
[2020-06-07 19:35] LABS: FOLIC ACID 12.3 ng/mL (8.6-58.9)
[2020-06-07 20:36] LABS: URINE BILIRUBIN NEGATIVE (Negative); URINE BLOOD NEGATIVE (Negative); URINE CLARITY CLEAR; URINE COLOR YELLOW; URINE GLUCOSE-RANDOM* NEGATIVE (Negative); URINE KETONES NEGATIVE (Negative); URINE LEUKOCYTES-REFLEX NEGATIVE (Negative); URINE NITRITE-REFLEX NEGATIVE (Negative); URINE PROTEIN (DIPSTICK) NEGATIVE (Negative); URINE UROBILINOGEN 0.2 E.U./dl (0.2-1.0)
[2020-06-07 20:38] VITALS: BP 101/50
[2020-06-07 20:44] LABS: AMP/METHAMP Negative (Negative); BARBITURATES Negative (Negative); BENZODIAZEPINES Negative (Negative); COCAINE Negative (Negative); METHADONE Negative (Negative); OPIATES Negative (Negative); PCP Negative (Negative)
[2020-06-07 21:30] VITALS: BP 108/58
--- NOTE | 2020-06-07 23:06 | NUR ---
ADMITTED TO THE UNIT AT APPROXIMATELY 2105. PT IS A/O X4 AND IS UP WITH ASSISTANCE TO THE BSC X1. PT C/O OF ALLERGIES AND REQUESTED PRN ALLERGY MEDICATION. WAS GIVEN DIRECTED. DENIES ANY C/O PAIN OR DISCOMFORT. VSS BLOOD SUGAR ELEVATED BUT WAS GIVEN LISPRO IN ED DIRECTLY BEFORE ARRIVAL TO THE UNIT. ADMISSION COMPLETED. SCD'S IN PLACE, FALL PRECAUTIONS IMPLEMENTED. PT EDUCATED SIGN CARPENTER LIGHT. URINAL AT THE BEDSIDE. WILL CONTINUE TO MONITOR.
[2020-06-08 08:00] VITALS: BP 90/54
[2020-06-08 12:37] LABS: HEMATOCRIT 38.9 % (42.0-52.0); HEMOGLOBIN 13.3 gm/dL (14.0-18.0); MCH 32.1 pg (26.0-34.0); MCHC 34.3 g/dL (28.0-37.0); MCV 93.7 fL (80.0-100.0); RBC 4.15 mil/uL (4.50-6.00); RDW 14.1 % (10.5-14.5); WBC 6.8 thou/uL (4.0-11.0)
[2020-06-08 12:47] LABS: ANION GAP 9 mmol/L (7-16); BUN 29 mg/dL (7-18); CALCIUM 9.3 mg/dL (8.5-10.1); CHLORIDE 96 mmol/L (98-107); CO2 30 mmol/L (21-32); GLUCOSE 202 mg/dL (74-106); SODIUM 135 mmol/L (136-145)
[2020-06-08 12:57] LABS: ALBUMIN 2.7 g/dL (3.4-5.0); MAGNESIUM 2.2 mg/dL (1.8-2.4); SGOT 48 U/L (15-37); SGPT 47 U/L (30-65); TOTAL BILIRUBIN 0.5 mg/dL (0.2-1.0); TOTAL PROTEIN 8.4 g/dL (6.4-8.2); TROPONIN-I <0.06 ng/mL (<0.06)
--- NOTE | 2020-06-08 13:37 | EKG ---
[address] [place] [address] ELECTROCARDIOGRAM REPORT Name: KANG SHUKLA Rosendo Room #: 443-P ADM IN M.R.#: [id number] Admission: 06/07/20 Attend Phys: Laron Chen MD Discharge: Date of : 42 Report #: [id number] [facility] ED Test Date: 2020-06-07 Test Time: 15:31:30 Pat Name: KANG SHUKLA Department: Room: 443 Gender: M Perfect Binder Operator: ALEE : 1940 Requested By: Hung Jha Order Number: [id number] MD: Sky Jarvis Measurements Intervals [place] Rate: 65 P: -3 CA: 258 QRS: 156 QRSD: 107 T: 13 QT: 482 QTc: 502 Interpretive Statements Sinus rhythm Prolonged CA interval Inferior infarct, old Consider anterior infarct Compared to ECG 02/08/2020 17:27:07 Electronically Signed On 06-08-2020 13:37:24 UNDERGRADUATE INTERN by Sky Jarvis [email or web address] <ELECTRONICALLY SIGNED> By: Sky Jarvis MD 06/08/20 1337 D: 12/1530 30 Sky Jarvis MD /VERONICA
[2020-06-08 16:45] VITALS: BP 110/65
--- NOTE | 2020-06-08 18:53 | NUR ---
PT ASSESSED AT START OF SHIFT. IN GOOD SPIRITS. SOMEWHAT FORGETFUL. NEEDS HELP HOLDING URINAL BUT KNOWS WHEN HE NEEDS TO GO. EATING AND DRINKING WELL. UP W/ THERAPY TO [facility] FOR SEVERAL HOURS. CONSULT FOR [facility].
[2020-06-08 18:58] VITALS: BP 105/54
[2020-06-09] MEDS ORDERED: DULOXETINE HCL30 MG PO (03:09)
[2020-06-09 03:34] VITALS: BP 95/58
--- NOTE | 2020-06-09 06:45 | NUR ---
ASSUMED PT CARE FROM JAMES (DAY RN). PT IS ALERT AND ORIENTED X3 WITH SOME CONFUSION. PT CALLS OUT AND MAKES HIS NEEDS KNOWN. FAXED MED LIST / MEDS WERE FIXED BY THE OVERNIGHT SHEAR OPERATOR HELPER. PT LIKES TO WEAR A DEPENDS. PT IS ASLEEP IN HIS ROOM. WILL CONTINUE TO MONITOR.
[2020-06-09 08:16] VITALS: BP 109/52
[2020-06-09 15:54] VITALS: BP 103/69
--- NOTE | 2020-06-09 17:09 | NUR ---
PT HAS WORKED WITH THERAPY. HAS BEEN UP TO BEDSIDE CHAIR FOR MEALS. BLOOD SUGARS CHECKED S/S INSULIN ORDERED. MEDS TAKEN. PT CONT OF B&B USES BSC.NO PAIN OR RESP DISTRESS ON SHIFT.
[2020-06-09 20:02] VITALS: BP 100/54
--- NOTE | 2020-06-10 05:43 | NUR ---
ASSESSED AT START OF SHIFT. PT A&OX4. UP WITH ASSIST TO THE BSC. DENIES PAIN N/V. BSG CHECKED AND INSULIN PROVIDED. PT SLEPT THROUGH THE SHIFT. COVID SWAB DONE AND RESULT NEGATIVE. FALL PREC IN PLACE AND WILL CONT WITH POC TILL EOS.
[2020-06-10 07:40] VITALS: BP 103/54
[2020-06-10 16:43] VITALS: BP 82/52
--- NOTE | 2020-06-10 19:35 | NUR ---
INCONT ON BOWEL BLADDER. KEPT CLEAN AND DRY. NO COMPLANTS VOICED.
[2020-06-10 20:10] VITALS: BP 114/65
--- NOTE | 2020-06-11 02:05 | NUR ---
PATIENT ALERT AND ORIENTED TO SELF AND PLACE. COOPERATIVE WITH CARE. SOME CONFUSION. INCONTINENT OF URINE X2 AT TIME OF NOTE. BS 165 AT 2100 AND GIVEN INSULIN PER S/S. DENIES PAIN. RESTING QUIETLY. WILL MONITOR.
[2020-06-11 04:00] VITALS: BP 94/56
[2020-06-11 08:15] VITALS: BP 111/69
--- NOTE | 2020-06-11 10:12 | NUR ---
ASSESSMENT: CM REVIEWED CHART AND SPOKE WITH PT. PT IS ALERT AND ORIENTED X4. PT WAS ADMITTED DUE TO FREQUENT FALLING AND HAS HX OF NEUROPATHY. PT REPORTS HE LIVES IN A HOUSE WITH HIS . PT REPORTS THAT ABOUT 1-2 STEPS TO ENTER THE HOME AND HAS STEPS TO THE BASEMENT BUT DOES NOT NEED TO USE THEM. PT REPORTS HAVING A WALKER AT HOME. PT REPORTS HE HAS BEEN TO [facility] IN THE PAST AND HAS HAS [facility] IN THE PAST. [facility] HAS BEEN CONSULTED TO SEE PATIENT AND THEY FEEL HE IS MORE APPROPRIATE FOR SNF UNSURE SAFEST PLAN IS FOR HIM TO RETURN HOME. PT HAS A CPAP AT HOME AND OXYGEN AT HOME. CM DISCUSSED WITH PATIENT AND HIS ABOUT SNF OPTIONS AND PROVIDED THEM WITH A LIST OF FACILITIES IN NETWORK WITH INSURANCE. PT IS REVIEWING LIST WITH HIS AND CM AWAITING SNF CHOICES. CM EMAILED A LIST TO PTS [email or web address]. CM WILL CONTINUE TO FOLLOW.
--- NOTE | 2020-06-11 10:22 | NUR ---
ASSUMED CARE AT 0700. PT IS A&O X4. BUT CONFUSED AND HAS DEMENITA. IV ON L FA IS INTACT AND SHOW NO SIGNS OF REDNESS OR SWELLING. SCAR ON HEAD BUT LOOKS LIKE IT IS HEALING. SCARS THROUGHOUT THE BODY. SOFT ABD. DENIES N/V/D. PT WAS GIVEN LORATIDINE FOR ALLERGY. PT COMPLAINS OF SINUS. INCONTINENT. CALL LIGHT WITHIN REACH. WILL CONTINUE TO MONITOR.
[2020-06-11 16:15] VITALS: BP 106/63
[2020-06-11 19:05] VITALS: BP 104/50
--- NOTE | 2020-06-12 00:42 | NUR ---
CONTINUE CARE FROM OUTGOING RN @2300. PT IN BED RESTING. DENIES PAIN/ N/V. UP WITH ASSITSX1. URINAL BY BEDSIDE. FALL PREC IN PLACE AND WILL CONT TO MONITOR.
[2020-06-12 04:44] VITALS: BP 92/48
[2020-06-12 07:54] VITALS: BP 89/56
--- NOTE | 2020-06-12 11:14 | NUR ---
ON-GOING ASSESSMENT: CM REVIEWED CHART AND SPOKE WITH LIASON AT [facility] WHO REPORTS THEY SPOKE WITH PATIENTS AND THEY CAN ACCEPT HIM TO SNF. CM NOTIFIED ATTENDING. CM FAXED D/C ORDERS TO FACILITY ALONG WITH NEGATIVE COVID TEST AND CONFIRMED THEY RECEIVED IT. TRANSPORTATION HAS BEEN ARRANGED FOR 1200. PTS IS NOTIFIED. CHART COPY WAS ORDERED. PT AND REPORT NO FURTHER NEEDS FROM CM PRIOR TO DISCHARGE. BEDSIDE RN HAS THE CONTACT NUMBER FOR REPORT FOR [facility] :[phone].
--- NOTE | 2020-06-12 12:15 | NUR ---
PT ASSESSED AT START OF SHIFT. PT PLEASANT BUT WITH MILD CONFUSION/FORGETFULNESS. NO C/O PAIN. EATING AND DRINKING WELL. INCONTINENT AT TIMES. UP TO THE CHAIR W/ THERAPY. IN FOR VISIT. PT DISCHAGED PER W/C [facility].
--- NOTE | 2020-06-13 14:15 | HC ---
[facility] [place] [address] CONSULTATION Name: KAGN SHUKLA Rosendo Room #: 443-P [facility] IN .R.#: [id number] Admission: 06/07/20 Attend Phys: Laron Chen MD Discharge: 06/12/20 Date of : 42 Report #: [id number] THIS REPORT FOR: cc: Ed Deal MD, Christopher B. MD Couchonnal, Luis F. MD ~ DATE OF SERVICE: 06/08/2020 CARDIOLOGY CONSULTATION REASON FOR CONSULTATION: Frequent falls. HISTORY OF PRESENT ILLNESS: The patient is a 79-year-old male who follows with Dr. Head for a known coronary artery disease that is not amenable to intervention. He has a history of prior ischemic cardiomyopathy. EF was as low as 25% and subsequently underwent ICD implantation. He was recently seen in Dr. Head's office about a week ago with weakness, memory issues, and low blood pressures. His most recent echocardiogram was in 10/2019, which shows that his ejection fraction has improved to 50% with medication therapy. He also has a history of atrial fibrillation and has been on amiodarone. Apparently, the patient has been having worsening falls over the past 3 days, but this is an issue that has been going on for several years. I saw the patient several years ago and in my note, I mentioned that he had frequent falls with standing. Also, has a history of neuropathy, dementia, diabetes, COPD, obstructive sleep apnea. Speaking with the patient today, he denies any chest pain or chest tightness. He denies PND or orthopnea. He denies any changes in his shortness of breath. He denies any malik syncopal episodes. Most of his episodes of falls usually occur after standing or if he tries to turn too quickly and __, may fall and hit his head. REVIEW OF SYSTEMS: A 12-point review of systems was performed today and was negative other than what I mentioned above. PAST MEDICAL HISTORY: As mentioned above. SOCIAL HISTORY: Does not smoke. FAMILY HISTORY: Noncontributory. ALLERGIES: None. MEDICATIONS: Have been reviewed and as an outpatient, the patient has been on acetaminophen as needed, amiodarone 200 mg a day, aspirin 81 a day, Neurontin 100 mg 2 tablets by mouth daily, Imdur 30 mg daily, Corlanor 5 mg once a day, Claritin, Januvia 50 mg by mouth daily, spironolactone 25 mg daily, Flomax 0.[address] [address] CONSULTATION Name: KANG SHUKLA Room #: 443-P [facility] IN [facility].#: [id number] Admission: 06/07/20 Attend Phys: Laorn Chen MD Discharge: 06/12/20 Date of : 42 Report #: [id number] mg, and torsemide 20 mg daily. PHYSICAL EXAMINATION: VITAL SIGNS: Temperature 36.3, pulse 68, respiration 18, and blood pressure 108/58. GENERAL: Alert and oriented x 3. HEENT: Oropharynx is clear. NECK: Supple, no thyromegaly. HEART: Regular rate and rhythm with no murmurs, rubs or gallops. He does not have elevated JVD. LUNGS: Clear to auscultation bilaterally. ABDOMEN: Soft, nontender, nondistended with no hepatosplenomegaly. EXTREMITIES: No lower extremity edema. He has 2+ peripheral pulses throughout. NEUROLOGIC: Cranial nerves 2-12 are intact. IMAGING: His EKG shows sinus rhythm with no ischemic changes. His chest x-ray shows no acute process and a previously implanted ICD. LABORATORY DATA: Demonstrate a white count of 6, hemoglobin 13, and platelets 274. Sodium is 135, potassium 4.0, and creatinine 1.0. Troponin is negative. ProBNP is 1300. CT of the head with no acute process. ASSESSMENT: Frequent falls. PLAN: Etiology of this is unclear, but does not sound to be cardiac in nature. I believe this is likely due to his known peripheral neuropathy and likely a component of autonomic dysfunction. I would recommend discontinuing the utilization of Flomax, which can exacerbate orthostatic hypotension. I would also recommend that we discontinue amiodarone at this time as this could cause worsening neuropathy. At this time, I do not think further cardiac workup is required and I agree with the assessments that he may need to be evaluated for placement as his cannot manage his frequent falls. We will follow. <ELECTRONICALLY SIGNED> By: Sky Jarvis MD 06/13/20 1415 1443 191 Sky Jarvis MD /nt
== END 2020-06-12 12:30 | DRG 74 ==
LOC: ER 15:04 → EROBS 18:44 → 4S 18:44
PROVIDERS: Emergency Medicine; ADMIT Internal Medicine; ATTEND Internal Medicine
PROC: 5A09457 Assistance with Respiratory Ventilation, 24-96 Consecutive Hours, Continuous Positive Airway Pressure (ICD-10-PCS; principal; 2020-06-08)
DX: E11.42 Type 2 diabetes mellitus with diabetic polyneuropathy (principal); J96.10 Chronic respiratory failure, unspecified whether with hypoxia or hypercapnia; I50.22 Chronic systolic (congestive) heart failure; I43 Cardiomyopathy in diseases classified elsewhere; E44.0 Moderate protein-calorie malnutrition; I95.2 Hypotension due to drugs; R53.81 Other malaise; E86.0 Dehydration; I11.0 Hypertensive heart disease with heart failure; F03.90 Unspecified dementia, unspecified severity, without behavioral disturbance, psychotic disturbance, mood disturbance, and anxiety; M19.90 Unspecified osteoarthritis, unspecified site; K21.9 Gastro-esophageal reflux disease without esophagitis; E78.5 Hyperlipidemia, unspecified; E78.00 Pure hypercholesterolemia, unspecified; E88.09 Other disorders of plasma-protein metabolism, not elsewhere classified; R41.9 Unspecified symptoms and signs involving cognitive functions and awareness; G47.33 Obstructive sleep apnea (adult) (pediatric); I25.10 Atherosclerotic heart disease of native coronary artery without angina pectoris; I95.9 Hypotension, unspecified; T50.2X5A Adverse effect of carbonic-anhydrase inhibitors, benzothiadiazides and other diuretics, initial encounter; E53.8 Deficiency of other specified B group vitamins; J44.9 Chronic obstructive pulmonary disease, unspecified; R29.6 Repeated falls; I25.5 Ischemic cardiomyopathy; Z66 Do not resuscitate; Z20.822 Contact with and (suspected) exposure to COVID-19; Y92.89 Other specified places as the place of occurrence of the external cause; Z98.42 Cataract extraction status, left eye; Z98.41 Cataract extraction status, right eye; Z87.01 Personal history of pneumonia (recurrent); Z79.84 Long term (current) use of oral hypoglycemic drugs; Z79.82 Long term (current) use of aspirin; Z79.899 Other long term (current) drug therapy
CPT/HCPCS: 10195